=== PATIENT | male | born 1955 | race Caucasian/White ===

== ENCOUNTER 2020-04-13 01:25 | Inpatient (IN) | payer MEDICARE ==
[~2020-04-13] VITALS: Ht 182.9 cm; Wt 71.2 kg
--- NOTE | ~2020-04-13 | HEMODYNAMI ---
PATIENT:KORIN DE LA VEGA MEDICAL RECORD: [id number] : 51 LOCATION[facility] [id number] ADMISSION DATE: 04/13/20 Generatedon:04/13/202015:11 Patient name: KORIN DE LA VEGA Patient #: [id number] SSN: : 1955 Date of study: 04/13/2020 Page: Of Hemodynamic Procedure Report Patient Data Patient Demographics Procedure consent was obtained First Name: KOIRN Gender: Male Last Name: CEFERINO : 1955 Middle Initial: W Age: 64 year(s) Patient #: [id number] Race: Unknown Additional ID: [id number] Contact details [address]: [address] [place] [address] State: [place] City: [place] Zip code: [address] Past Medical History Allergies: No known allergies Admission Admission Data Admission Date: 04/13/2020 Admission Time: 2:11 Room #: D.2122 Lab Results Lab Result Date: 04/13/2020 Lab Result Time: 0:00 Biochemistry Name Units Result Min Max BUN mg/dl 20 --(----)*- 7 18 Creatinine mg/dl 1.2 --(---*)-- 0.6 1.3 eGFR ml/min 64.42797 *-(----)-- 90 120 NONAFRICAN CBC Name Units Result Min Max Hematocrit % 40.9 -*(----)-- 42 54 Hemoglobin g/dl 13.2 -*(----)-- 13.5 17.5 Procedure Procedure Types Cath Procedure Diagnostic Procedure C [facility] w/Coronaries FFR/IVUS FFR Initial FFR Additional Sedation Charges Moderate Sedation up to 30 minutes PCI Procedure Hemochron ACT Test Procedure Description Procedure Date Procedure Date: 04/13/2020 Procedure Start Time: 14:36 Procedure End Time: 15:08 Procedure Staff Name Function Chintan Pereira MD Performing Physician Petra Small RT Monitor Yaneth Ballard RT Scrub Joan Wilson RN Nurse Yaneth Ballard RT Blind Slat Stapling Machine Operator Tracy Garcia RT Monitor Procedure Data Cath Procedure Fluoroscopy Diagnostic fluoroscopy Total fluoroscopy Time: 6.2 time: 6.2 min min Diagnostic fluoroscopy Total fluoroscopy dose: dose: 1373 mGy 1373 mGy Contrast Material Contrast Material Type Amount (ml) Isovue 300 107 Entry Location Entry Primary Successful Side Size Upsize Upsize Entry Closure Succes sful Closure Location (Fr) 1 (Fr) 2 (Fr) Remarks Device Remarks Femoral Right 5 Fr 6 Fr Exoseal artery Short Estimated blood loss: 10 ml Diagnostic catheters Device Type Used For End Catheter Placement MULTIPACK JL 4.0 5Fr Procedure catheter MULTIPACK 3DRC 5Fr Procedure catheter MULTIPACK Pigtail 5 Fr Ventriculography catheter Procedure Medications Medication Administration Route Dosage 0.9% NaCl I.V. 100 ml/hr Oxygen etCO2 Nasal cannula 2 l/min Lidocaine 2% added to field 20 Heparin Flush Bag added to field 2 bags (1000units/500ml NS) Versed I.V. 2 mg Fentanyl I.V. 50 mcg Solumedrol I.V. 125 mg Heparin Bolus I.V. 5000 units Integrilin (Bolus I.V. 6.2 ml 2mg/ml) Integrilin (Bolus I.V. 3.8 ml 2mg/ml) Hemodynamics Rest HGB: 13.2 (g/dl) Heart Rate: 88 (bpm) Pressure Samples Time Site Value (mmHg) Purpose Heart Use Rate(bpm) 14:43 LV 100/6,8 Snapshot 83 14:43 LV 207/111,34 Snapshot 81 Snapshots Pre Cath Intra NCS Post Cath Vital Signs Time Heart Resp SPO2 etCO2 NIBP (mmHg) Rhythm Pain Sedation Rate (ipm) (%) (mmHg) Status Level (bpm) 14:29:41 96 19 98 30 115/81(91) A-Fib 0 (11) 10(A) , No pain 14:33:41 89 17 97 31.5 117/75(97) A-Fib 0 (11) 10(A) , No pain 14:37:36 78 17 99 30.7 113/79(91) A-Fib 0 (11) 10(A) , No pain 14:41:29 91 17 99 27.7 115/80(88) A-Fib 0 (11) 10(A) , No pain 14:45:25 82 13 100 12 122/78(100) A-Fib 0 (11) 10(A) , No pain 14:49:23 85 17 100 27.7 111/76(93) A-Fib 0 (11) 10(A) , No pain 14:53:18 89 16 100 27.7 115/76(91) A-Fib 0 (11) 10(A) , No pain 14:57:12 84 17 100 28.4 110/78(88) A-Fib 0 (11) 10(A) , No pain 15:01:10 82 18 100 23.9 115/73(96) A-Fib 0 (11) 10(A) , No pain 15:05:07 79 17 100 26.9 112/74(99) A-Fib 0 (11) 10(A) , No pain Medications Time Medication Route Dose Verified Delivered Reason Notes Effectiveness by by 14:25:06 0.9% NaCl I.V. 100 Chintan Joan used for ml/hr [facility] procedure MD ALBERT 14:25:12 Oxygen etCO2 2 Chintan Joan used for Nasal l/min [facility] procedure cannula MD ALBERT 14:25:16 Lidocaine 2% added 20ml Chintan Woodson for local to vial [facility] anesthetic field MD ESPITIA 14:25:20 Heparin Flush added 2 Chintan Jinory used for Bag to bags [facility] procedure (1000units/500ml field MD ESPITIA NS) 14:34:33 Versed I.V. 2 mg Chintan Roacha for sedation [facility] Ethan Wilson MD, RN 14:34:38 Fentanyl I.V. 50 Chintan Joan for sedation mcg [facility] Ethan Wilson MD, RN 14:41:38 Solumedrol I.V. 125 Chintan Joan Per physician mg St Ethan Wilson MD, RN 14:47:27 Heparin Bolus I.V. 5000 Chintan Joan for verif ied units [place] Steve anticoagulation with Dr. MD ALBERT [place] 14:47:43 Integrilin I.V. 6.2 Chintan Woodson for (Bolus 2mg/ml) ml St Ethan Pereira antiplatelet MD ESPITIA therapy 14:47:56 Integrilin I.V. 3.8 Chintan Woodson for (Bolus 2mg/ml) ml [facility] Ethan Pereira antiplatelet MD ESPITIA therapy Procedure Log Time Note 14:03:03 Informed consent obtained and on chart 14:03:29 Procedure Status Urgent Heart Cath (IP). 14:03:30 Time tracking: Regular hours (M-F 7:00 - 5:00) 14:03:32 Plan of Care:Hemodynamics will remain stable., Cardiac rhythm will remain stable., Comfort level will be maintained., Respiratory function will remain adequate., Patient/ family verbilizes understanding of procedure., Procedure tolerated without complication., Recovers from procedure without complications.. 14:03:34 Yaneth Ballard RT(R) sent for patient. Start room use. 14:04:21 H&P Date Dictated: 04/12/2020 ER History on chart.. 14:04:59 Patient allergic to No known allergies 14:05:40 Lab Result : BUN 20 mg/dl 14:05:40 Lab Result : Creatinine 1.2 mg/dl 14:05:40 Lab Result : eGFR NONAFRICAN 64.51942 ml/min 14:05:40 Lab Result : Hemoglobin 13.2 g/dl 14:05:40 Lab Result : Hematocrit 40.9 % 14:18:45 Patient received from Med II to CCL 2 Alert and oriented. Tansferred to table in Supine position. 14:18:47 Warm blankets applied, and milady hugger turned on for patient comfort. 14:18:48 Correct patient and procedure confirmed by team. 14:18:49 ECG and BP/O2 sat monitors applied to patient. 14:18:55 Pre-procedure instructions explained to patient. 14:18:59 Family in waiting room. 14:19:04 Is the patient allergic to Iodine/contrast media? No. 14:19:06 Was the patient premedicated? Yes 14:19:07 Is patient on blood thinner?Yes 14:19:12 ACC The patient was administered the following blood thiners within the last 24 hours: Eliquis 14:19:15 Patient diabetic? No. 14:19:20 Previous problem with sedation/anesthesia? No ? 14:19:22 Snore? Yes 14:19:26 Deviated septum? No 14:19:27 Sleep apnea? No 14:19:34 Airway obstruction? Unknown smoker 14:19:39 Dentures? No ? 14:19:42 Patient pain scale 0/10 ?. 14:19:50 IV patent on arrival in right forearm with 0.9% NaCl at KVO. 14:19:53 Lab results completed and on chart. 14:20:03 Stress Test: no; abnormal na 14:20:05 Alarms reviewed by R. N. 14:20:06 Sharps counted by scrub and verified by R.N. 14:20:07 Physician paged 14:20:11 Use device set Femoral Dx 14:20:13 ACIST Syringe (97703) opened to sterile field. 14:20:13 Bag Decanter (2002S) opened to sterile field. 14:20:14 Medline Cath Pack ([id number]) opened to sterile field. 14:21:01 ACIST Hand Control (75687) opened to sterile field. 14:21:01 ACIST Manifold (37666) opened to sterile field. 14:21:03 DIAGNOSTIC Multipack 5Fr catheter set ([id number]) opened to sterile field. 14:21:04 Tegaderm 4 x 4 (1626W) opened to sterile field. 14:21:06 SHEATH 5FR [place] (QGE882) opened to sterile field. 14:21:07 EMERALD Guide Wire (368-728) opened to sterile field. 14:25:06 0.9% NaCl 100 ml/hr I.V. was administered by Joan Wilson RN; used for procedure; Verbal order read back and verified. 14:25:12 Oxygen 2 l/min etCO2 Nasal cannula was administered by Joan Wilson RN; used for procedure; Verbal order read back and verified. 14:25:16 Lidocaine 2% 20ml vial added to field was administered by Chintan Pereira MD; for local anesthetic; Verbal order read back and verified. 14:25:20 Heparin Flush Bag (1000units/500ml NS) 2 bags added to field was administered by Chintan Pereira MD; used for procedure; Verbal order read back and verified. 14:28:47 Vital chart was started 14:28:48 Baseline sample Acquired. 14:28:53 Rhythm: sinus rhythm 14:28:54 Full Disclosure recording started 14:28:58 Physician arrived 14:28:59 --------ALL STOP TIME OUT------ 14:29:08 Final Timeout: patient, procedure, and site verified with staff and physician. All members of the team are in agreement. 14:29:11 Right groin site verified by team. 14:29:15 Fire Safety Assessment: A--An alcohol-based skin anteseptic being used preoperatively., C--Open oxygen or nitrous oxide is being used., D--An ESU, laser, or fiber-optic light is being used. 14:29:19 Physical assessment completed. ASA score P 2 - A patient with mild systemic disease as per Chintan Pereira MD. 14:29:37 2) 60-89 Mildly reduced kidney function, and other findings (as for stage 1) point to kidney disease. 14:29:55 Maximum allowable contrast dose (3.7 X eGFR X 0.75)178 ml. 14:30:01 Sedation plan: IV Moderate Sedation Medication:Versed, Fentanyl 14:34:33 Versed 2 mg I.V. was administered by Joan Wilson RN; for sedation; Verbal order read back and verified. 14:34:38 Fentanyl 50 mcg I.V. was administered by Joan Wilson RN; for sedation; Verbal order read back and verified. 14:36:35 Procedure started. 14:36:45 Local anesthetic to right femoral artery with Lidocaine 2% by Chintan Pereira MD.INITIAL ACCESS ONLY 14:37:41 A 5 Fr sheath was inserted into the Right Femoral artery 14:38:35 A MULTIPACK JL 4.0 5Fr catheter was advanced over the wire and used for Procedure. 14:39:01 LCA angiography performed. 14:40:52 Catheter removed. 14:41:22 A MULTIPACK 3DRC 5Fr catheter was advanced over the wire and used for Procedure. 14:41:38 Solumedrol 125 mg I.V. was administered by Joan Wilson RN; Per physician; Verbal order read back and verified. 14:42:34 RCA angiography performed. 14:43:02 Catheter removed. 14:43:16 A MULTIPACK Pigtail 5 Fr catheter was advanced over the wire and used for Ventriculography. 14:43:50 LV hemodynamics recorded. 14:43:54 LV gram done using MICHELE 14:43:56 Catheter removed. 14:45:47 GUIDE 6FR XBLAD 3.5 catheter ([id number]) opened to sterile field. 14:45:48 [place] Nimblerata Plus pressure wire (18518S) opened to sterile field. 14:45:49 INFLATOR Merit BasixCompak (WH1003) opened to sterile field. 14:45:50 SHEATH 6FR [place] (ZFG765) opened to sterile field. 14:46:28 Proceeding to intervention. 14:46:36 Sheath upsized to a 6 Fr Short. 14:46:48 6 Fr XBLAD3.5 guide catheter was inserted over the wire 14:47:00 FFR/IFR wire advanced. 14:47:27 Heparin Bolus 5000 units I.V. was administered by Joan Wilson RN; for anticoagulation; verified with Dr. Carcamo Verbal order read back and verified. 14:47:43 Integrilin (Bolus 2mg/ml) 6.2 ml I.V. was administered by Chintan Pereira MD; for antiplatelet therapy; Verbal order read back and verified. 14:47:56 Integrilin (Bolus 2mg/ml) 3.8 ml I.V. was administered by Chintan Pereira MD; for antiplatelet therapy; Verbal order read back and verified. 14:52:52 Wire advanced across lesion. 14:56:36 mLAD lesion measured at .95 with IFR 15:00:04 mCirc lesion measured at 1.02 with IFR 15:03:38 OM1 lesion measured at 1.02 with IFR 15:04:25 Sheath removed intact; hemostasis achieved with Exoseal to the Right Femoral artery. 15:04:28 Procedure ended.(Physican Out) 15:05:13 Fluoroscopy time 06.20 minutes. 15:05:17 Fluoroscopy dose: 1373 mGy 15:05:17 Flurop Dose total: 1373 15:05:26 Dose Area Product 60920 mGy/cm. 15:05:31 Contrast amount:Isovue 300 107ml. 15:05:34 Maximum allowable dose exceeded? No. 15:05:35 Sharps counted by scrub and verified by R.N. 15:05:50 Insertion/operative site no bleeding no hematoma. 15:05:54 Post-op/insertion site Right Femoral artery dressed using a 4 x 4 and Tegaderm. 15:05:57 Post Procedure Pulses reassessed and unchanged 15:06:03 Post-procedure physical assessment completed. ASA score P 3 - A patient with severe systemic disease as per Chintan Pereira MD. 15:06:07 Post procedure rhythm: unchanged. 15:06:12 Estimated blood loss: 10 ml 15:06:21 Post procedure instruction explained to patient.Patient verbalizes understanding. 15:07:08 Procedure type changed to Cath procedure, Diagnostic procedure, [facility], [facility] w/Coronaries, FFR/IVUS, FFR Initial, FFR Additional, Sedation Charges, Moderate Sedation up to 30 minutes, PCI procedure, Hemochron ACT Test 15:07:11 Procedure and supply charges have been captured, reviewed, submitted and are correct. 15:07:44 Vital chart was stopped 15:07:46 [facility] Findings: mild to moderate CAD (<70%) 15:07:48 See physician's report for complete and final results. 15:07:50 Report given to Med II. 15:08:02 Patient transfered to Med II with Stretcher. 15:08:04 Procedure ended. 15:08:04 Full Disclosure recording stopped 15:08:11 End room use (Document Last) 15:09:21 ACT drawn and resulted at 217 seconds. (normal therapeutic range 180-240 seconds). 15:10:54 ACT drawn and resulted at ? seconds. (normal therapeutic range 180-240 seconds). Device Usage Item Name Manufacture Quantity Catalog Hospital Part Current Minima l Lot# / Number Charge Number Stock Stock Serial# Code ACIST Acist 1 08385 345272 288560 993237 20 Syringe Medical (25627) Systems Inc Bag Microtek 1 2001S 103119 01687 222389 5 Decanter Medical Inc. () Medline Medline 1 [id number] 244506 35767 571585 5 Cath Pack ([id number]) ACIST Hand Acist 1 61904 420755 369245 923455 5 Control Medical (03328) Systems Inc ACIST Acist 1 88869 567367 958150 986403 5 Manifold Medical (37455) Systems Inc DIAGNOSTIC Cardinal 1 [id number] 493773 75116 103301 30 Multipack Health 5Fr catheter set (FJ6342) Tegaderm 4 3M 1 1626W 598042 951036 966072 5 x 4 (1626W) SHEATH 5FR Terumo 1 ULK083 382060 365391 085664 5 [place] (ILB495) EMERALD Cardinal 1 502-455 222600 267900 743393 5 Guide Wire Health (502-148) MULTIPACK Cardinal 1 267535 5 JL 4.0 5Fr Health catheter MULTIPACK Cardinal 1 917133 5 3DRC 5Fr Health catheter MULTIPACK Cardinal 1 836331 5 Pigtail 5 Health Fr catheter GUIDE 6FR Cardinal 1 [id number] 517621 534634 025419 10 XBLAD 3.5 Health catheter ([id number]) [place] 1 81736W 903820 [id number] 413587 5 Verrata Plus pressure wire (87172R) INFLATOR Merit 1 JE1898 045571 622179 535809 15 [facility] Medical BasixCompak (ZR3155) SHEATH 6FR Terumo 1 NLO036 276554 728058 728460 40 [place] (ZMV063) Signature Audit [place] Stage Time Signature Unsigned Intra-Procedure 04/13/2020 Tracy Garcia 3:10:27 PM RT(R) Intra-Procedure 04/13/2020 Joan Wilson 3:10:51 PM RN Intra-Procedure 04/13/2020 Chintan Browne 3:11:11 PM Ethan ESPITIA Signatures Performing Physician : Signature : Chintan Pereira MD Date : Time : Monitor : Petra Signature : Staci RT Date : Time : Nurse : Joan Wilson RN Signature : Date : Time : Monitor : Tracy Garcia Signature : RT Date : Time : [facility] [address] [place] [address]
--- NOTE | ~2020-04-13 | HEMODYNAMI ---
PATIENT:KORIN DE LA VEGA MEDICAL RECORD: [id number] : 51 LOCATION:[address] [id number] ADMISSION DATE: 04/13/20 Generatedon:04/14/202010:51 Patient name: KORIN DE LA VEGA Patient #: [id number] SSN: : 1955 Date of study: 04/14/2020 Page: Of Hemodynamic Procedure Report Patient Data Patient Demographics Procedure consent was obtained First Name: KORIN Gender: Male Last Name: CEFERINO : 1955 [facility] Initial: W Age: 64 year(s) Patient #: [id number] Race: Unknown Additional ID: [id number] Contact details Address: [address] [place] [address] State: [place] City: [place] Zip code: [address] Past Medical History Allergies: No known allergies Admission Admission Data Admission Date: 04/13/2020 Admission Time: 2:11 Room #: 2122 Lab Results Lab Result Date: 04/13/2020 Lab Result Time: 0:00 Biochemistry Name Units Result Min Max BUN mg/dl 20 --(----)*- 7 18 Creatinine mg/dl 1.2 --(---*)-- 0.6 1.3 eGFR ml/min 64.03657 *-(----)-- 90 120 NONAFRICAN CBC Name Units Result Min Max Hematocrit % 40.9 -*(----)-- 42 54 Hemoglobin g/dl 13.2 -*(----)-- 13.5 17.5 Procedure Procedure Types Cath Procedure Diagnostic Procedure Cardioversion External MEGA Procedure Description Procedure Date Procedure Date: 04/14/2020 Procedure Start Time: 10:34 Procedure End Time: 10:50 Procedure Staff Name Function Chintan Pereira MD Performing Physician Yaneth Ballard RT Monitor Erica Eisenberg RN Nurse Josette Adams Cutter Hand Rubén Durham CRNA Additional personnel Procedure Data Cath Procedure Fluoroscopy Diagnostic fluoroscopy Total fluoroscopy Time: 0 time: 0 min min Diagnostic fluoroscopy Total fluoroscopy dose: 0 dose: 0 mGy mGy Estimated blood loss: 0 ml Procedure Complications No complications Procedure Medications Medication Administration Route Dosage 0.9% NaCl I.V. 100 ml/hr Hurricaine [place]bourn P.O. 1 Sprays Oxygen NC 3 l/min Refer to Anesthesia Notes for Sedation Medications Hemodynamics Rest Heart Rate: 96 (bpm) Snapshots Pre Cath Intra NCS Post Cath Vital Signs Time Heart Resp SPO2 etCO2 NIBP (mmHg) Rhythm Pain Sedation Rate (ipm) (%) (mmHg) Status Level (bpm) 10:34:04 96 19 24 Measuring NSR (Missing) 10(A) 10:35:28 93 11 100 0 Time NSR (Missing) 10(A) Exceeded 10:40:06 73 20 94 0 Time NSR (Missing) 10(A) Exceeded 10:40:45 71 16 88 34.5 144/84(116) NSR (Missing) 10(A) 10:43:11 70 20 98 27.8 129/75(103) NSR (Missing) 10(A) 10:46:52 68 20 100 26.2 119/73(93) NSR (Missing) 10(A) Medications Time Medication Route Dose Verified Delivered Reason Notes Effectiv eness by by 10:32:32 0.9% NaCl I.V. 100 Chintan Maldonado used for ml/hr [place] Faina procedure RN 10:32:59 Hurricaine P[address] Chintan Woodson for local [place] Sprays [facility] anesthetic MD ESPITIA 10:33:08 Oxygen NC 3 Chintan Woodson for low 02 l/min [facility] John satjuana ESPITIA MD 10:33:20 Refer to Chintan Woodson for Anesthesia [facility] sedation Notes for MD ESPITIA Sedation Medications Procedure Log Time Note 10:03:11 Informed consent obtained and on chart 10:03:42 Procedure Status Cardioversion, MEGA. 10:03:43 Time tracking: Regular hours (M-F 7:00 - 5:00) 10:03:46 Plan of Care:Hemodynamics will remain stable., Cardiac rhythm will remain stable., Comfort level will be maintained., Respiratory function will remain adequate., Patient/ family verbilizes understanding of procedure., Procedure tolerated without complication., Recovers from procedure without complications.. 10:03:51 H&P Date Dictated: 04/13/2020 ER History on chart.. 10:04:24 Yaneth Ballard RT(R) sent for patient. Start room use. 10:28:00 Patient arrived from Pre/Post Procedure Room to CCL 3. Patient remains on bed/stretcher for procedure. 10:28:07 Warm blankets applied, and milady hugger turned on for patient comfort. 10:28:07 Correct patient and procedure confirmed by team. 10:28:09 ECG and BP/O2 sat monitors applied to patient. 10:28:10 Pre-procedure instructions explained to patient. 10:28:10 Pre-op teaching completed and patient verbalized understanding. 10:28:11 Family in patients room. 10:28:14 Patient NPO since Midnight. 10:29:31 Rubén Durham CRNA present and monitoring patient for TIVA. 10:31:36 Patient allergic to No known allergies 10:31:37 Is patient on blood thinner?Yes 10:31:40 ACC The patient was administered the following blood thiners within the last 24 hours: Eliquis 10:31:42 Patient diabetic? No. 10:31:44 Snore? Yes 10:31:45 Previous problem with sedation/anesthesia? No ? 10:31:47 Sleep apnea? No 10:31:48 Deviated septum? No 10:31:49 Opens mouth fully? Yes 10:31:50 Sticks out tongue? Yes 10:32:12 Airway obstruction? No PT IS SMOKER 10:32:15 Dentures? No ? 10:32:15 Vital chart was started 10:32:32 0.9% NaCl 100 ml/hr I.V. was administered by Erica Eisenberg RN; used for procedure; Verbal order read back and verified. 10:32:34 IV patent on arrival in right antecubital with 0.9% NaCl at [facility]. 10:32:38 Lab results completed and on chart. 10:32:44 Alarms reviewed by RMichael Willams. 10:32:53 Quick Combo opened to sterile field. 10:32:59 Hurricaine [place]n 1 Sprays P.O. was administered by Chintan Pereira MD; for local anesthetic; Verbal order read back and verified. 10:33:06 --------ALL STOP TIME OUT------ 10:33:08 Oxygen 3 l/min NC was administered by Chintan Pereira MD; for low 02 sats; Verbal order read back and verified. 10:33:08 Final Timeout: patient, procedure, and site verified with staff and physician. All members of the team are in agreement. 10:33:15 Fire Safety Assessment: C--Open oxygen or nitrous oxide is being used. 10:33:18 Physical assessment completed. ASA score P 3 - A patient with severe systemic disease as per Chintan Pereira MD. 10:33:20 Refer to Anesthesia Notes for Sedation Medications was administered by Chintan Pereira MD; for sedation; Verbal order read back and verified. 10:33:22 Sedation plan: TIVA Medication:Propofol 10:33:44 Baseline sample Acquired. 10:33:52 Rhythm: atrial fibrillation 10:33:54 Full Disclosure recording started 10:34:05 Procedure started. 10:34:16 MEGA 10:34:17 Josette Adams Camera Mechanic present for MEGA. 10:34:25 MEGA started. 10:38:10 MEGA completed. 10:38:18 ------Cardioversion------ 10:38:20 Quick combo pads placed on patients chest and back. 10:38:22 Defibrillator synced and charged to 200 Joules. 10:38:31 Shock delivered. 10:38:47 Patient cardioverted to sinus rhythm . 10:39:09 Procedure ended.(Physican Out) 10:40:12 Fluoroscopy time 00.00 minutes. 10:40:14 Fluoroscopy dose: 0 mGy 10:40:14 Flurop Dose total: 0 10:40:16 Dose Area Product 0 mGy/cm. 10:41:32 Post-procedure physical assessment completed. ASA score P 3 - A patient with severe systemic disease as per Chintan Pereira MD. 10:41:35 Post procedure rhythm: sinus rhythm 10:41:38 Estimated blood loss: 0 ml 10:41:39 Post procedure instruction explained to patient.Patient verbalizes understanding. 10:41:39 Patient needs reinforcement of post procedure teaching. 10:46:18 Procedure and supply charges have been captured, reviewed, submitted and are correct. 10:46:20 Procedure Complication : No complications 10:46:24 MEGA Findings: other (see MD operative note) 10:46:26 Operative report dictated upon procedure completion. 10:46:26 See physician's report for complete and final results. 10:47:02 PATIENT GOING TO IR FOR BIOPSY. THEN WILL GO TO ROOM ON THE FLOOR 10:47:08 Patient transfered to Other with Bed. 10:50:25 Vital chart was stopped 10:50:27 Procedure ended. 10:50:27 Full Disclosure recording stopped 10:50:30 End room use (Document Last) 10:50:42 End room use (Document Last) 10:51:16 End room use (Document Last) Device Usage Item Manufacture Quantity Catalog Hospital Part Current Minimal Lot# / Name Number Charge Number Stock Stock Seri al# Code Hop Skip Connect 1 [id number] Combo Signature Audit [place] Stage Time Signature Unsigned Intra-Procedure 04/14/2020 Yaneth Ballard 10:50:42 AM RT(R) Intra-Procedure 04/14/2020 Erica 10:51:16 AM Faina ALBERT Intra-Procedure 04/14/2020 Chintan Browne 10:51:46 AM Ethan ESPITIA [facility] [address] [place] [address]
[2020-04-13] MEDS ORDERED: CARDIZEM30 MG (03:16)
[2020-04-13] MEDS ORDERED: ELIQUIS5 MG (03:17)
[2020-04-13] MEDS ORDERED: PACERONE200 MG (03:18)
[2020-04-13] MEDS ORDERED: VITAMIN D5000 UNI1 (03:19)
[2020-04-13 03:27] LABS: BASOPHILS 0.1 % (0-2); EOSINOPHILS 0 % (0-7); HEMATOCRIT 40.9 % (42.0-54.0); HEMOGLOBIN 13.2 g/dL (13.5-17.5); IMMATURE GRANULOCYTES 0.3 % (0-5); LYMPHOCYTES 4.4 % (15-50); MCH 28.4 pg (26.0-34.0); MCHC 32.3 g/dL (31.0-37.0); MCV 88.1 fL (80.0-100.0); MEAN PLATELET VOLUME 8.9 fL (7.4-10.4); MONOCYTES 2.8 % (2-11); NEUTROPHILS 92.4 % (40-80); PLATELET COUNT 352 10x3/uL (130-400); RBC 4.64 10x6/uL (4.20-6.10); RDW 16.8 % (11.5-14.5); WBC 11.7 10x3/uL (4.8-10.8)
[2020-04-13 03:41] LABS: APTT 44.6 SECONDS (22.8-39.4); INR 1.32 (0.85-1.17); PROTIME 16.3 SECONDS (11.6-15.0)
[2020-04-13 03:49] LABS: ALBUMIN 2.6 g/dL (3.4-5.0); ALKALINE PHOSPHATASE 69 U/L (30-120); ALT (SGPT) 18 U/L (10-68); BILIRUBIN - TOTAL 0.65 mg/dL (0.2-1.3); CALC OSMOLALITY 267 mosm/kg (275-300); CALCIUM 9.7 mg/dL (8.5-10.1); CARBON DIOXIDE 22.2 mmol/L (21.0-32.0); CHLORIDE - SERUM 97 mmol/L (98-107); CKMB 0.3 U/L (0.0-3.6); CREATINE KINASE 23 UL (21-232); CREATININE - SERUM 1.2 mg/dL (0.6-1.3); GLUCOSE 142 mg/dL (74-106); MAGNESIUM - SERUM 1.9 mg/dL (1.8-2.4); POTASSIUM - SERUM 4.6 mmol/L (3.5-5.1); PRO BNP 2621 pg/mL (0-125); PROTEIN - SERUM 8.6 g/dL (6.4-8.2); SODIUM 131 mmol/L (136-145); TROPONIN-I < 0.017 ng/mL (0.000-0.060); UREA NITROGEN 20 mg/dL (7-18); eGFR NON AFRICAN AMERICAN 64 mL/min (90-120)
[2020-04-13 04:00] VITALS: BP 122/84
--- NOTE | 2020-04-13 04:10 | NUR ---
PT A&O. UP AD NAEEM. C/O OF PAIN WHILE DEEP BREATHING, OTHERWISE NO COMPLAINTS. SMOKES A PACK AND A HALF OF CIGARETTES A DAY AND DRINKS ABOUT 7 BEERS A DAY. CURRENT FRACTURE IN LOWER BACK FOLLOWED BY PHYSICIAN. PT CURRENTLY DENIES PAIN OR NEEDS.
--- NOTE | 2020-04-13 07:00 | NUR ---
RECEIVED REPORT. ASSUMED CARE OF PATIENT. CALL LIGHT WITHIN REACH. PATIENT SITTING UP IN BED WITH EYES OPEN. SPOUSE AT BEDSIDE. RESP EVEN AND UNLABORED. PATIENT COMPLAINS OF CHEST PAIN ONLY ON INSPIRATION. BEDSIDE SHIFT REPORT COMPLETE. WHITE BOARD UPDATED. PATIENT DENIES NEEDS. NPO STATUS MADE KNOWN TO PATIENT. NO DISTRESS.
[2020-04-13 08:22] LABS: BILIRUBIN NEGATIVE (NEGATIVE); GLUCOSE NEGATIVE (NEGATIVE); KETONE NEGATIVE (NEGATIVE); NITRITE NEGATIVE (NEGATIVE); UROBILINOGEN NORMAL (NORMAL)
[2020-04-13 09:12] LABS: LDL-HDL RATIO 0.8 ratio (1.5-3.5)
[2020-04-13 09:28] VITALS: BP 130/69
[2020-04-13 09:52] LABS: CKMB 0.4 U/L (0.0-3.6); CREATINE KINASE 27 UL (21-232); TROPONIN-I < 0.017 ng/mL (0.000-0.060)
--- NOTE | 2020-04-13 10:52 | NUR ---
PATIENT IS ON ELIQUIS BID AND DID NOT WANT THE SCDS.
[2020-04-13 12:09] VITALS: BP 132/81
[2020-04-13 12:42] VITALS: BMI 21.3
--- NOTE | 2020-04-13 13:22 | NUR ---
PREOP MEDS ADMINISTERED AT THIS TIME.
--- NOTE | 2020-04-13 14:00 | NUR ---
PATIENT LEFT UNIT VIA BED FOR YARD COUPLER. NO DISTRESS.
--- NOTE | 2020-04-13 15:27 | NUR ---
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 DRESSING TO RIGHT GROIN CLEAN DRY AND INTACT. PERIPHERAL PULSES PATENT. PATIENT RESTING WITH EYES OPEN. CALL LIGHT WITHIN REACH.
[2020-04-13 15:35] VITALS: BP 122/75
[2020-04-13 16:51] LABS: CKMB 0.4 U/L (0.0-3.6); CREATINE KINASE 22 UL (21-232)
[2020-04-13 16:54] LABS: TROPONIN-I < 0.017 ng/mL (0.000-0.060)
--- NOTE | 2020-04-13 20:32 | NUR ---
GONE TO CT VIA WC.
[2020-04-13 22:26] VITALS: BP 125/67
[2020-04-14] VITALS (9 sets, daily range): BP systolic 114–150; BP diastolic 70–95
[2020-04-14 06:45] LABS: BASOPHILS 0 % (0-2); EOSINOPHILS 0 % (0-7); HEMATOCRIT 40.5 % (42.0-54.0); HEMOGLOBIN 12.9 g/dL (13.5-17.5); IMMATURE GRANULOCYTES 0.2 % (0-5); LYMPHOCYTES 5.9 % (15-50); MCH 28.4 pg (26.0-34.0); MCHC 31.9 g/dL (31.0-37.0); MCV 89.2 fL (80.0-100.0); MEAN PLATELET VOLUME 8.9 fL (7.4-10.4); MONOCYTES 5.2 % (2-11); NEUTROPHILS 88.7 % (40-80); RBC 4.54 10x6/uL (4.20-6.10); RDW 17.3 % (11.5-14.5)
[2020-04-14 06:48] LABS: PLATELET COUNT 198 10x3/uL (130-400)
[2020-04-14 08:14] LABS: ALBUMIN 2.3 g/dL (3.4-5.0); ALKALINE PHOSPHATASE 56 U/L (30-120); ALT (SGPT) 18 U/L (10-68); BILIRUBIN - TOTAL 0.28 mg/dL (0.2-1.3); CALC OSMOLALITY 272 mosm/kg (275-300); CARBON DIOXIDE 24.2 mmol/L (21.0-32.0); CHLORIDE - SERUM 99 mmol/L (98-107); GLUCOSE 124 mg/dL (74-106); LDH 121 U/L (85-227); MAGNESIUM - SERUM 2.3 mg/dL (1.8-2.4); POTASSIUM - SERUM 4.9 mmol/L (3.5-5.1); PROTEIN - SERUM 7.1 g/dL (6.4-8.2); SODIUM 133 mmol/L (136-145); eGFR NON AFRICAN AMERICAN 79 mL/min (90-120)
[2020-04-14 08:16] LABS: UREA NITROGEN 29 mg/dL (7-18)
[2020-04-14 08:31] LABS: INR 1.12 (0.85-1.17); PROTIME 14.3 SECONDS (11.6-15.0)
[2020-04-14 08:32] LABS: APTT 45.9 SECONDS (22.8-39.4)
--- NOTE | 2020-04-14 12:23 | NUR ---
RECEIVED PT FROM IR. PT IS AAO AND LYING SEMI FOWLERS. CALL LIGHT W/I REACH. AT BEDSIDE. VSS AND WNL. NO S/S OF DISTRESS NOTED. WILL CTM.
[2020-04-14 13:12] LABS: PROTEIN - BODY FLUID 4.2 G/DL
[2020-04-14 14:20] LABS: MACROPHAGES BF 6 %; NEUT - BF 49 %
--- NOTE | 2020-04-14 20:18 | NUR ---
REMOVED DRESSING FROM HEART CATH. SKIN INTACT AND NO HEMORRHAGING AT THIS TIME. NO PAIN OR REDNESS AT SITE.
--- NOTE | 2020-04-14 22:05 | NUR ---
REPORT RECEIVED AT SHIFT CHANGE. PATIENT ALERT AND ORIENTED WITH SPOUSE AT BEDSIDE. DRESSING FROM RIGHT UPPER THIGH REMOVED WITH NO EVIDENCE OF HEMORRHAGING, REDNESS, OR DRAINAGE. NO EVIDENCE OF HEMORRHAGING AT INCISION SITE ON UPPER BACK FROM THORACENTESIS. PATIENT REPORTS NO CONCERNS AT THIS TIME.
[2020-04-15] VITALS: BP 146/82
[2020-04-15 04:00] VITALS: BP 117/75
[2020-04-15 06:00] LABS: BASOPHILS 0 % (0-2); EOSINOPHILS 0 % (0-7); HEMATOCRIT 33.8 % (42.0-54.0); HEMOGLOBIN 10.8 g/dL (13.5-17.5); IMMATURE GRANULOCYTES 0.1 % (0-5); LYMPHOCYTES 8.1 % (15-50); MCH 28.1 pg (26.0-34.0); MCV 87.8 fL (80.0-100.0); MEAN PLATELET VOLUME 9.1 fL (7.4-10.4); MONOCYTES 7.2 % (2-11); NEUTROPHILS 84.6 % (40-80); RBC 3.85 10x6/uL (4.20-6.10); RDW 17.1 % (11.5-14.5); WBC 7.9 10x3/uL (4.8-10.8)
[2020-04-15 06:22] LABS: PLATELET COUNT 304 10x3/uL (130-400)
[2020-04-15 06:37] LABS: ALBUMIN 2.2 g/dL (3.4-5.0); ANION GAP 13.3 mmol/L (8-16); BILIRUBIN - TOTAL 0.24 mg/dL (0.2-1.3); CALCIUM 8.4 mg/dL (8.5-10.1); CARBON DIOXIDE 22.2 mmol/L (21.0-32.0); CREATININE - SERUM 1.1 mg/dL (0.6-1.3); MAGNESIUM - SERUM 2.1 mg/dL (1.8-2.4); POTASSIUM - SERUM 4.5 mmol/L (3.5-5.1); PROTEIN - SERUM 6.6 g/dL (6.4-8.2)
--- NOTE | 2020-04-15 07:32 | EC ---
PATIENT:KORIN DE LA VEGA DATE OF SERVICE: 04/13/20 SEX: M MEDICAL RECORD: [id number] DATE OF : [birth year] LOCATION:D.M2 D.212 AGE OF PATIENT: 64 ADMISSION DATE: 04/13/20 REFERRING PHYSICIAN: INTERPRETING PHYSICIAN: JOSEPH GONZALEZ MD ECHOCARDIOGRAM REPORT ECHO CHARGES 4 ECHO COMPLETE Date: 04/14/20 CLINICAL DIAGNOSIS: DYSPNEA ECHOCARDIOGRAPHIC MEASUREMENTS (adult normal given) AC root (d.<3.7cm) 2.5 cm LV Septum d (<1.2 cm> 1.3 cm Valve Excursion 1.4 cm LV Septum (systole) 1.4 cm Left Atria (s.<4.0cm> 3.7 cm LVPW d(<1.2cm) 1.1 cm RV (d.<2.3cm) 3.0 cm LVPW (sytole) 1.2 cm LV diastole(<5.6CM) 4.2 cm MV E-F(>70mm/sec) cm LV systole 3.1 cm LVOT Diameter 1.8 cm MV exc.(>10mm) cm Est.ejection fraction (50-75%) % DOPPLER: LVIT cm/sec A 18 cm/sec E 115 cm/sec LA cm/sec RVSP 31.4 mmHg LVOT 79 cm/sec AOP1/2T m/s Asc. Ao 121 cm/sec RVOT 52 cm/sec RA cm/sec PA cm/sec AV Gradient Peak 5.9 mmHg AV Mean 3.3 mmHg AV Area 1.6 cm MV Gradient Peak 5.0 mmHg MV Mean 2.3 mmHg MV Area cm COMMENTS: PACS Casting And Pasting Supervisor: Arthur MILNER Tank Inspector: 3 Dr. Carcamo TAPE# PACS Pericardial Effusion N DATE OF SERVICE: FINDINGS: 1. Left ventricle is normal size and shape. Ejection fraction around 45% to 50%. 2. Left atrium is normal. 3. Aortic valve is normal. 4. Mitral valve is normal. 5. Tricuspid valve has trace tricuspid regurgitation. RVSP is 31 mmHg. 6. Right ventricle is mildly enlarged with normal function. ECHOCARDIOGRAM REPORT [id number] KORIN DE LA VEGA 7. Right atrium is normal. 8. Pulmonic valve is normal shape, structure, and function, not well visualized. 9. Pericardium shows no effusion. TRANSINT:[id number] Voice Confirmation ID: [id number] DOCUMENT ID: [id number] JOSEPH GONZALEZ MD at 0732 CC: [id number] DICTATION DATE: 04/14/20 1252 MOBILITY SPECIALIST: 04/14/20 2135 ADM IN [place] [address] [place] [address]
--- NOTE | 2020-04-15 08:32 | NUR ---
POKE WITH MIRIAN PHARMACIST AND SHE STATES ZOSYN AND VANCOMYCIN ARE COMPATIBLE Y-SITED WITH BANANA BAG BUT THE ZOSYN AND VANCOMYCIN AREN'T COMPATIBLE TOGETHER. SHE STATES IF DR. TABARES WILL CHANGE ZOYN TO RUN OVER 30 MIN AND NOT IN 4 HOURS THE TIMES WILL WORK OUT AND MEDS WON'T BE LATE. I VERBALIZED UNDERSTANDING. WILL SPEAK WITH DR. TABARES ABOUT CHANGING ZOSYN WHEN HE ROUNDS.
--- NOTE | 2020-04-15 09:06 | NUR ---
CINDY STILL RUNNING. PT WANTS TO SHOWER BEFORE START VANCOMYCIN AND BANANA BAG. WILL WAIT TILL AFTER POT SHOWERS TO HOOK THOSE MEDS UP.
[2020-04-15 09:57] VITALS: BP 162/78
--- NOTE | 2020-04-15 10:15 | NUR ---
ZOSYN FINISHED INFUSING. PT UNHOOKED FROM IV AND IV COVERED. UNHOOKED PT FROM TELEMETRY. PT TO TAKE SHOWER.
--- NOTE | 2020-04-15 12:40 | NUR ---
I have reviewed this patient and I concur with the Shift Assessment completed by the Licensed Practical Nurse today this shift.
--- NOTE | 2020-04-15 13:43 | NUR ---
Nutrition Follow-up: Eating well. Noted plans for possible d/c tomorrow pending cultures. Diet: Regular Wt: 157# (04/13) Labs noted: Na 132, Ca 8.4, Alb 2.2 Meds reviewed -Encourage PO intake and honor food preferences. -Monitor wt; noted daily wts ordered. -RD following.
--- NOTE | 2020-04-15 14:52 | CN ---
PATIENT NAME:KORIN DE LA VEGA MEDICAL RECORD: [id number] : 51 LOCATION:. D.2122 ADMIT DATE: 04/13/20 ACCOUNT: [id number] CONSULTING PHYSICIAN: RIA BERG MD REFERRING PHYSICIAN: KRUPA CHAN MD DATE OF CONSULTATION: 04/13/2020 HISTORY OF PRESENT ILLNESS: A 64-year-old gentleman with history of hypertension, transferred from [place] with onset of atrial fibrillation with RVR, angina, dyspnea, also found to have a lung mass. We are asked to see him concerning his cardiovascular status. Constitutional symptoms began about a month with weight loss, palpitations, fluttering. SOCIAL HISTORY: Smokes about a pack and a half a day, drinks better than 6 beers. Easily able to take care of all his ADLs. MEDICATIONS: On transfer include Eliquis 5 mg p.o. b.i.d., amiodarone 200 p.o. b.i.d., diltiazem 120 b.i.d. ALLERGIES: Unknown. REVIEW OF SYSTEMS: The patient reports easy bruising but reports no swollen glands. The patient reports no fever, no night sweats, no significant weight gain, no significant weight loss. No significant exercise tolerance. The patient reports no dry eyes, no irritation, no vision change. Patient reports no difficulty hearing and no ear pain. Patient reports no frequent nose bleeds or nose and sinus problems. Patient reports on arm pain on exertion. No shortness of breath while lying down. No history of heart murmur. Patient reports no cough, no wheezing or coughing up blood. Patient reports no abdominal pain, no vomiting. Normal appetite. No diarrhea and not vomiting blood. No nausea and no constipation. Patient reports no incontinence. No difficulty urinating. No hematuria. No increased frequency. Patient reports no muscle aches. No weakness, no arthralgias, no back pain. No swelling of the extremities. Patient reports no abnormal mole, no jaundice, no rashes. Reports no loss of consciousness. No weakness and no numbness. No seizures, dizziness, or headaches. The patient reports no depression, no sleep disturbance, feeling safe in a relationship and no alcohol abuse. Patient reports on fatigue. Reports no runny nose or sinus pressure. No itching, no hives, and no frequent sneezing. PHYSICAL EXAMINATION: GENERAL: Pleasant gentleman in no acute distress, appears stated age. VITAL SIGNS: Blood pressure 122/84, pulse 94 and irregular. HEENT: Normocephalic, atraumatic. NECK: No bruits noted. HEART: Irregular, rates around 100, a II/ systolic ejection murmur. LUNGS: Prolonged expiratory phase, few expiratory wheezes. ABDOMEN: Soft, nontender. EXTREMITIES: Pulse 2+. No edema. IMPRESSION AND PLAN: New onset atrial fibrillation with angina. We will plan for angiography, MEGA cardioversion, probably will need a biopsy of the lung mass in the near future. Further recommendations based on the above. TRANSINT:[id number] Voice Confirmation ID: [id number] DOCUMENT ID: [id number] CONSULT REPORT [id number] KORIN DE LA VEGA GREGORY A MD at 1452 CC: [id number] DICTATION DATE: 04/13/20 0849 CARAMEL CANDY MAKER: 04/13/20 1022 ADM IN [facility] [address] [place] [address]
--- NOTE | 2020-04-15 14:53 | TEE ---
PATIENT:KORIN DE LA VEGA MEDICAL RECORD: [id number] LOCATION:D. D.212 AGE OF PATIENT: 64 ADMISSION DATE: 04/13/20 SEX: M REFERRING PHYSICIAN: INTERPRETING PHYSICIAN: RIA BERG MD TRANSESOPHAGEAL ECHOCARDIOGRAM Date: 04/14/20 MEGA CHARGE Y INDICATIONS: CARDIOVERSION PREMEDICATIONS: PATIENT'S RESPONSE PROCEDURE DOPPLER MEASUREMENTS: LVIT LA PA RA LVOT 79 RVOT 52 Asc. Ao 121 AV Gradient Peak 5.9 AV Mean 3.3 AV Area 1.6 MV Gradient Peak 5.0 MV Mean 2.3 MV Area INTERPRETATION: Doppler: 2-D: COLOR FLOW DOPPLER NORMAL SALINE STUDY: MISCELLANOUS: DIAGNOSIS: PLAN: Windows Security Analyst:3 Dr. Carcamo Career Services Manager: Arthur MILNER COMMENTS: PACS DATE OF SERVICE: 04/14/2020 TRANSESOPHAGEAL NOTE DESCRIPTION OF PROCEDURE: After general sedation via TIVA via anesthesia, transesophageal Omniplane probe was placed in the distal esophagus and proximal stomach without difficulty. FINDINGS: LVH is present. LV internal dimension is normal. Wall motion is TRANSESOPHAGEAL ECHOCARDIOGRAM REPORT [id number] REINALDO DE LA VEGA. EF is greater than or equal to 55%. Aortic valve is tricuspid with good valve excursion. No significant AI by color flow imaging. Left atrium appears normal dimensions. Left atrial appendage is well visualized with no evidence of thrombus. Good contractility via Doppler interrogation. Mitral valve appears normal. Trivial MR. Right-sided chambers appear normal. Trivial TR. At the end of procedure, the Omniplane probe was turned posteriorly and this shows minimal atherosclerotic debris in the descending aorta. TRANSINT:[id number] Voice Confirmation ID: [id number] DOCUMENT ID: [id number] at 1453 CC: [id number] DICTATION DATE: 04/14/20 1042 MOTION DESIGNER: 04/14/20 1110 ADM IN [place] [address] [place] [address]
--- NOTE | 2020-04-15 14:53 | OP ---
PATIENT NAME: KORIN DE LA VEGA MEDICAL RECORD: [id number] :51 LOCATION:D.M2 D.2121 ADMISSION DATE:04/13/20 SURGEON: RIA BERG MD DATE OF OPERATION: 04/13/2020 PROCEDURE: Left heart catheterization, selective coronary angiography, plus IFR to the LAD and IFR to the circumflex, right femoral artery approach. CATHETERS: A 5-Upper Sorbian sheath, 5/4 left and right Jeremy, 5/4 pig. The procedure was well tolerated. The patient returned to kenny. Sheath removed. ExoSeal device placed. FINDINGS: Left ventriculography in 30 degree MICHELE view normal wall motion and normal systolic function. CORONARY ANATOMY: LEFT MAIN: Left main is free of disease. LAD: Has a questionable stenosis in mid portion; however, this is insignificant via IFR wire. CIRCUMFLEX: Circumflex again has a more questionable flow obstructive stenosis; however, IFR the circumflex is again normal. RIGHT CORONARY ARTERY: Dominant artery, gives rise to PDA and no significant disease. IMPRESSION: Normal left ventricular function, no significant stenosis, confirmed via IFR wired to both the LAD and circ. TRANSINT:[id number] Voice Confirmation ID: [id number] DOCUMENT ID: [id number] RIA BERG MD at 1453 CC: [id number] DICTATION DATE: 04/13/20 1513 SECTION CREWS ACTIVITIES CLERK: 04/13/202111 ADM IN [facility] [address] [place] [address]
--- NOTE | 2020-04-15 14:53 | OP ---
PATIENT NAME: KORIN NGUYEN MEDICAL RECORD: [id number] :51 LOCATION:D.M2 D.2122 ADMISSION DATE:04/13/20 SURGEON: RIA BERG MD DATE OF OPERATION: 04/14/2020 PROCEDURE: Cardioversion. DESCRIPTION OF PROCEDURE: After general sedation via TIVA via anesthesia, a single synchronized shock was successful in restoring atrial fibrillation to normal sinus rhythm. IMPRESSION: Successful cardioversion on Korin Nguyen. During the procedure, the patient was monitored continuously with pulse oximetry and telemetry and noninvasive blood pressure monitoring. TRANSINT:[id number] Voice Confirmation ID: [id number] DOCUMENT ID: [id number] RIA BERG MD at 1453 CC: [id number] DICTATION DATE: 04/14/20 1043 FIELD CLINICAL ENGINEER: 04/14/20 1616 ADM IN [facility] [address] [place] [address]
[2020-04-15 15:06] VITALS: BP 142/76
[2020-04-15 18:09] LABS: ACID FAST SMEAR Negative (()); AFB SPECIMEN PROCESSING Concentration (())
[2020-04-15 18:09] LABS: ACID FAST SMEAR Negative (()); AFB SPECIMEN PROCESSING Concentration (())
[2020-04-15 20:00] VITALS: BP 139/71
[2020-04-16 04:00] VITALS: BP 129/63
[2020-04-16 06:53] LABS: BASOPHILS 0.2 % (0-2); EOSINOPHILS 0.5 % (0-7); HEMATOCRIT 35.3 % (42.0-54.0); IMMATURE GRANULOCYTES 0.2 % (0-5); LYMPHOCYTES 13.5 % (15-50); MCH 27.7 pg (26.0-34.0); MCHC 31.2 g/dL (31.0-37.0); MCV 88.9 fL (80.0-100.0); MEAN PLATELET VOLUME 8.5 fL (7.4-10.4); NEUTROPHILS 76.6 % (40-80); PLATELET COUNT 302 10x3/uL (130-400); RBC 3.97 10x6/uL (4.20-6.10); RDW 17.3 % (11.5-14.5)
[2020-04-16 07:31] LABS: ALBUMIN 2.1 g/dL (3.4-5.0); ANION GAP 9.9 mmol/L (8-16); BILIRUBIN - TOTAL 0.36 mg/dL (0.2-1.3); CALCIUM 8.2 mg/dL (8.5-10.1); CARBON DIOXIDE 26.1 mmol/L (21.0-32.0); CREATININE - SERUM 1.1 mg/dL (0.6-1.3); MAGNESIUM - SERUM 2.1 mg/dL (1.8-2.4); PROTEIN - SERUM 6.4 g/dL (6.4-8.2)
[2020-04-16 08:21] VITALS: BP 156/70
[2020-04-16 10:12] LABS: FUNGUS STAIN Final report (())
[2020-04-16 10:12] LABS: FUNGUS STAIN Final report (())
--- NOTE | 2020-04-16 10:48 | NUR ---
I have reviewed this patient and I concur with the Shift Assessment completed by the Licensed Practical Nurse today this shift.
[2020-04-16 11:41] VITALS: BP 155/79
[2020-04-16] MEDS ORDERED: ALBUTEROL SULF8.5 GM INH (13:56)
[2020-04-16] MEDS ORDERED: LEVAQUIN750 MG PO ×2 (13:56→14:22)
[2020-04-16] MEDS ORDERED: OMNICEF300 MG PO ×2 (13:56→14:22)
[2020-04-16] MEDS ORDERED: TESSALON PERLE100 MG PO (13:56)
[2020-04-16] MEDS ORDERED: MUCINEX DM ER1 EAC1 PO (13:56)
--- NOTE | 2020-04-16 14:10 | NUR ---
PAGE INTO DR TABARES FOR ANY FURTHER DC ORDERS. AWAITING CALL BACK.
[2020-04-16] MEDS ORDERED: XOPENEX 0.0.63 MG/3 UPD (14:22)
[2020-04-16] MEDS ORDERED: PULMICORT0.5 MG/21 INH (14:23)
--- NOTE | 2020-04-16 14:30 | NUR ---
DR TABARES STATES THAT HE IS GOING TO "COME BY AND SEE HIM PRIOR TO BEING DISCHARGED".
--- NOTE | 2020-04-16 14:56 | MORECARE ---
CASE MANAGEMENT DISCHARGE SUMMARY PATIENT: KORIN DE LA VEGA UNIT: [id number] ADM DATE: 04/13/20 AGE: 64 : [birth year] SEX: M ROOM/BED: D.[facility] AUTHOR: DEBBI ANGELO PHYSICIAN: REFERRING PHYSICIAN: KRUPA CHAN MD DATE OF SERVICE: 04/16/20 Discharge Plan Patient Name: KORIN DE LA VEGA Facility: [facility]:[place] : 1955 Planned Disposition: Anticipated Discharge Date: Discharge Date: Expected LOS: Initial Reviewer: [email or web address] Initial Review Date: 04/13/2020 Generated: 04/16/20 3:56 pm DCPIA - Discharge Planning Initial Assessment Updated by [id number]: Kimberli Mcfadden on 04/16/20 2:49 pm * Is the patient Alert and Oriented? Yes * How many steps to enter\exit or inside your home? 5/0 * PCP Vi * Pharmacy [facility] * Preadmission Environment Home with Family * ADLs Independent * Equipment Cane * List name and contact numbers for known caregivers / representatives who currently or will assist patient after discharge: SEYMOUR PANTOJA [phone] * Verbal permission to speak to the caregivers and representatives has been obtained from the patient. Yes * Community resources currently utilized None * Additional services required to return to the preadmission environment? No * Can the patient safely return to the preadmission environment? Yes * Has this patient been hospitalized within the prior 30 days at any hospital? No Coverage Notice Reviewer: [id number] Jerald Mcfadden Notice Issued Date-Time: 04/16/2020 14:00 Notice Type: IM Discharge Notice Notice Delivered To: Patient Relationship to Patient: Loan Review Manager Name: Delivery Method: HAND - Hand Delivered Joie Days: Prior Verbal Notification: Recipient Understood Notice: Yes Recipient Signature: Yes Med Rec Note Co-signed by Attending: Coverage Notice Comment: DC IMM DELIVERED Reviewer: [email or web address] Jerald Mcfadden Notice Issued Date-Time: 04/16/2020 14:00 Notice Type: Patient Choice Letter Notice Delivered To: Patient Relationship to Patient: Loan Review Manager Name: Delivery Method: HAND - Hand Delivered Joie Days: Prior Verbal Notification: Recipient Understood Notice: Yes Recipient Signature: Yes Med Rec Note Co-signed by Attending: Coverage Notice Comment: NEBS WITH [facility] PATIENT. ZORATIN FOR . Patient Name: KORIN DE LA VEGA Page [id number] at 1456 All edits/amendments must be made on the electronic document DICTATION DATE: 04/16/201455 OPERATOR VACUUM: YASIR 04/16/201455 RPT#: [id number] DC DATE: STATUS: ADM IN [facility] [address] [place] [address] END OF REPORT
--- NOTE | 2020-04-16 15:04 | MORECARE ---
CASE MANAGEMENT DISCHARGE SUMMARY PATIENT: KORIN DE LA VEGA UNIT: [id number] ADM DATE: 04/13/20 AGE: 64 : 53 SEX: M ROOM/BED: D.7268 AUTHOR: GI,DOC PHYSICIAN: REFERRING PHYSICIAN: KRUPA CHAN MD DATE OF SERVICE: 04/16/20 Discharge Plan Patient Name: KORIN DE LA VEGA Facility: [facility]:[place] : 1955 Planned Disposition: Anticipated Discharge Date: Discharge Date: Expected LOS: Initial Reviewer: [id number] Initial Review Date: 04/13/2020 Generated: 04/16/20 4:03 pm Comments DCP- Discharge Planning Updated by [email or web address]: Kimberli Mcfadden on 04/16/20 2:[address] Patient Name: KORIN DE LA VEGA Admission Status: ER Accout number: [id number] Admission Date: 04-13-2020 : 1955 Admission Diagnosis:CHEST PAIN, UNSPECIFIED Attending: GE CHAN Current LOS: 3 Anticipated DC Date: Planned Disposition: Primary Insurance: [employer] [facility] Discharge Planning Comments: CM met with patient to complete initial dc planning assessment. CM educated patient on the CM role and verbal consent given by patient to complete assessment. CM verified patient's address, phone number, and emergency contact phone numbers. Patient lives at home with his Seymour [phone]. At discharge patient plans to return home and feels this is a safe discharge. CM discussed availability of home health, rehab services, and medical equipment. Patient denied known discharge needs at this time. Declination signed for home health. CM stated patient can change his mind and home health can be provided by his PCP after discharge. Stated CM can assist his PCP in setting it up. Pt does not have a qualifying diagnosis for home nebs. CM provided pt with [facility] [phone] who can provide nebulizer machine for 30 dollars/. Nursing will call in medications per order. Transportation provider at discharge will be Seymour. CM will continue to follow and will assist as needed with dc plans/needs. DC IMM delivered, explained, signed by the patient, and placed in chart. Signed form also left with the patient. Supervisor Ride Assembly: Kimberli Mcfadden DCPIA - Discharge Planning Initial Assessment Updated by [id number]: Kimberli Mcfadden on 04/16/20 2:49 pm * Is the patient Alert and Oriented? Yes * How many steps to enter\exit or inside your home? 5/0 * PCP Vi * [facility] * Preadmission Environment Home with Family * ADLs Independent * Equipment Cane * List name and contact numbers for known caregivers / representatives who currently or will assist patient after discharge: SEYMOUR PANTOJA [phone] * Verbal permission to speak to the caregivers and representatives has been obtained from the patient. Yes * Community resources currently utilized None * Additional services required to return to the preadmission environment? No * Can the patient safely return to the preadmission environment? Yes * Has this patient been hospitalized within the prior 30 days at any hospital? No Coverage Notice Reviewer: [id number] Jerald Mcfadden Notice Issued Date-Time: 04/16/2020 14:00 Notice Type: IM Discharge Notice Notice Delivered To: Patient Relationship to Patient: Aeronautical Design Engineer Name: Delivery Method: HAND - Hand Delivered Joie Days: Prior Verbal Notification: Recipient Understood Notice: Yes Recipient Signature: Yes Med Rec Note Co-signed by Attending: Coverage Notice Comment: DC IMM DELIVERED Reviewer: [id number] Jerald Mcfadden Notice Issued Date-Time: 04/16/2020 14:00 Notice Type: Patient Choice Letter Notice Delivered To: Patient Relationship to Patient: Aeronautical Design Engineer Name: Delivery Method: HAND - Hand Delivered Joie Days: Prior Verbal Notification: Recipient Understood Notice: Yes Recipient Signature: Yes Med Rec Note Co-signed by Attending: Coverage Notice Comment: NEBS WITH [facility]. DECLINATIN FOR HH. Last DP export: 04/16/20 1:56 p Patient Name: KORIN DE LA VEGA Page [id number] at 1504 All edits/amendments must be made on the electronic document DICTATION DATE: 04/16/201502 DIRECT CARE SUPERVISOR: YASIR 04/16/201502 RPT#: [id number] DC DATE: STATUS: ADM IN [facility] [address] [place] [address] END OF REPORT
--- NOTE | 2020-04-16 15:11 | NUR ---
PT WANTING TELEMTRY DC'D. SO HE CAN GET DRESSED SINCE HE IS DC. DC'D TELEMTRY AND RETURNED TO OUTSIDE INSTALLATION MACHINIST.
--- NOTE | 2020-04-16 15:23 | NUR ---
DR. MONDRAGON STATES TO ME PT DC CANCELED. PATHOLOGY REPORTS SHOWS LUNG CANCER. DR. TABARES WANTS PT TO HAVE STAGING DONE HERE AND WORKUP. DR. TIAN WILL BE CONSULTED. I VERBALIZED UNDERSTANDING. DR. MESA WENT IN PT'S ROOM AND TOLD PT AND HIS WHO IS AT BEDSIDE.
--- NOTE | 2020-04-16 15:52 | MORECARE ---
CASE MANAGEMENT DISCHARGE SUMMARY PATIENT: KORIN DE LA VEGA UNIT: [id number] ADM DATE: 04/13/20 AGE: 64 : 51 SEX: M ROOM/BED: D.1139 AUTHOR: GI,DOC PHYSICIAN: REFERRING PHYSICIAN: KRUPA CHAN MD DATE OF SERVICE: 04/16/20 Discharge Plan Patient Name: KORIN DE LA VEGA Facility: [facility]:[place] : 1955 Planned Disposition: Anticipated Discharge Date: Discharge Date: Expected LOS: Initial Reviewer: [id number] Initial Review Date: 04/13/2020 Generated: 04/16/20 4:51 pm Comments DCP- Discharge Planning Updated by [email or web address]: Kimberli Mcfadden on 04/16/20 2:[address] Patient Name: KORIN DE LA VEGA Admission Status: ER Accout number: [id number] Admission Date: 04-13-2020 : 1955 Admission Diagnosis:CHEST PAIN, UNSPECIFIED Attending: GE CHAN Current LOS: 3 Anticipated DC Date: Planned Disposition: Primary Insurance: [employer] [facility] Discharge Planning Comments: CM met with patient to complete initial dc planning assessment. CM educated patient on the CM role and verbal consent given by patient to complete assessment. CM verified patient's address, phone number, and emergency contact phone numbers. Patient lives at home with his Seymour [phone]. At discharge patient plans to return home and feels this is a safe discharge. CM discussed availability of home health, rehab services, and medical equipment. Patient denied known discharge needs at this time. Declination signed for home health. CM stated patient can change his mind and home health can be provided by his PCP after discharge. Stated CM can assist his PCP in setting it up. Pt does not have a qualifying diagnosis for home nebs. CM provided pt with [facility] [phone] who can provide nebulizer machine for 30 dollars/. Nursing will call in medications per order. Transportation provider at discharge will be Seymour. CM will continue to follow and will assist as needed with dc plans/needs. DC IMM delivered, explained, signed by the patient, and placed in chart. Signed form also left with the patient. Continuous Dryout Operator Helper: Kimberli Mcfadden DCPIA - Discharge Planning Initial Assessment Updated by [id number]: Kimberli Mcfadden on 04/16/20 2:49 pm * Is the patient Alert and Oriented? Yes * How many steps to enter\exit or inside your home? 5/0 * PCP Vi * Pharm[facility] * Preadmission Environment Home with Family * ADLs Independent * Equipment Cane * List name and contact numbers for known caregivers / representatives who currently or will assist patient after discharge: SEYMOUR PANTOJA [phone] * Verbal permission to speak to the caregivers and representatives has been obtained from the patient. Yes * Community resources currently utilized None * Additional services required to return to the preadmission environment? No * Can the patient safely return to the preadmission environment? Yes * Has this patient been hospitalized within the prior 30 days at any hospital? No External Providers External Provider: [facility] Contact Date: Service Request Date: Service Type: Resolution: Reviewer: Comments: Coverage Notice Reviewer: [id number] - Kimberli Mcfadden Notice Issued Date-Time: 04/16/2020 14:00 Notice Type: IM Discharge Notice Notice Delivered To: Patient Relationship to Patient: Mirror Polisher Name: Delivery Method: HAND - Hand Delivered Joie Days: Prior Verbal Notification: Recipient Understood Notice: Yes Recipient Signature: Yes Med Rec Note Co-signed by Attending: Coverage Notice Comment: DC IMM DELIVERED Reviewer: [id number] Jerald Mcfadden Notice Issued Date-Time: 04/16/2020 14:00 Notice Type: Patient Choice Letter Notice Delivered To: Patient Relationship to Patient: Mirror Polisher Name: Delivery Method: HAND - Hand Delivered Joie Days: Prior Verbal Notification: Recipient Understood Notice: Yes Recipient Signature: Yes Med Rec Note Co-signed by Attending: Coverage Notice Comment: NEBS WITH [facility]. DECLINATIN FOR HH. Last DP export: 04/16/20 2:04 p Patient Name: KORIN DE LA VEGA Page [phone] at 1552 All edits/amendments must be made on the electronic document DICTATION DATE: 04/16/201550 SUPERVISOR SCRAP PREPARATION: YASIR 04/16/201550 RPT#: [id number] DC DATE: STATUS: ADM IN [facility] [address] [place] [address] END OF REPORT
--- NOTE | 2020-04-16 16:00 | MORECARE ---
CASE MANAGEMENT DISCHARGE SUMMARY PATIENT: KORIN DE LA VEGA UNIT: [id number] ADM DATE: 04/13/20 AGE: 64 : 51 SEX: M ROOM/BED: D.0749 AUTHOR: GI,DOC PHYSICIAN: REFERRING PHYSICIAN: KRUPA CHAN MD DATE OF SERVICE: 04/16/20 Discharge Plan Patient Name: KORIN DE LA VEGA Facility: [facility]:[place] : 1955 Planned Disposition: Anticipated Discharge Date: Discharge Date: Expected LOS: Initial Reviewer: [id number] Initial Review Date: 04/13/2020 Generated: 04/16/20 4:59 pm Comments DCP- Discharge Planning Updated by [email or web address]: Kimberli Edds on 04/16/20 2:[address] CM SPOKE WITH DR TERRY ABOUT NEBULIZERS. DR TERRY STATES HE HAS COPD. CM SPOKE WITH PATIENT WHO HAS AGREED TO USE [employer] [facility] PATIENT DME PROVIDER IN [place]. CHOICE SIGNED. C SPOKE WITH FAUSTINA AT [phone] AT [facility] AND FAXED REFERRAL. ELIO BUCHANAN DCP- Discharge Planning Updated by [email or web address]: Kimberli Edds on 04/16/20 2:[address] Patient Name: KORIN DE LA VEGA Admission Status: ER Accout number: [id number] Admission Date: 04-13-2020 : 1955 Admission Diagnosis:CHEST PAIN, UNSPECIFIED Attending: GE CHAN Current LOS: 3 Anticipated DC Date: Planned Disposition: Primary Insurance: [employer] [facility] Discharge Planning Comments: CM met with patient to complete initial dc planning assessment. CM educated patient on the CM role and verbal consent given by patient to complete assessment. CM verified patient's address, phone number, and emergency contact phone numbers. Patient lives at home with his Seymour [phone]. At discharge patient plans to return home and feels this is a safe discharge. CM discussed availability of home health, rehab services, and medical equipment. Patient denied known discharge needs at this time. Declination signed for home health. CM stated patient can change his mind and home health can be provided by his PCP after discharge. Stated CM can assist his PCP in setting it up. Pt does not have a qualifying diagnosis for home nebs. CM provided pt with [facility] [phone] who can provide nebulizer machine for 30 dollars/. Nursing will call in medications per order. Transportation provider at discharge will be [place]ym[place]. CM will continue to follow and will assist as needed with dc plans/needs. DC IMM delivered, explained, signed by the patient, and placed in chart. Signed form also left with the patient. Roofer Helper Vinyl Coating: Kimberli Buchanan DCPIA - Discharge Planning Initial Assessment Updated by [id number]: Kimberli Buchanan on 04/16/20 2:49 pm * Is the patient Alert and Oriented? Yes * How many steps to enter\exit or inside your home? 5/0 * PCP Vi * Pharm[facility] * Preadmission Environment Home with Family * ADLs Independent * Equipment Cane * List name and contact numbers for known caregivers / representatives who currently or will assist patient after discharge: SEYMOUR PANTOJA [phone] * Verbal permission to speak to the caregivers and representatives has been obtained from the patient. Yes * Community resources currently utilized None * Additional services required to return to the preadmission environment? No * Can the patient safely return to the preadmission environment? Yes * Has this patient been hospitalized within the prior 30 days at any hospital? No Coverage Notice Reviewer: [id number] Jerald Buchanan Notice Issued Date-Time: 04/16/2020 14:00 Notice Type: IM Discharge Notice Notice Delivered To: Patient Relationship to Patient: Kindergarten Aide Name: Delivery Method: HAND - Hand Delivered Joie Days: Prior Verbal Notification: Recipient Understood Notice: Yes Recipient Signature: Yes Med Rec Note Co-signed by Attending: Coverage Notice Comment: DC IMM DELIVERED Reviewer: [id number] Jerald Buchanan Notice Issued Date-Time: 04/16/2020 14:00 Notice Type: Patient Choice Letter Notice Delivered To: Patient Relationship to Patient: Kindergarten Aide Name: Delivery Method: HAND - Hand Delivered Joie Days: Prior Verbal Notification: Recipient Understood Notice: Yes Recipient Signature: Yes Med Rec Note Co-signed by Attending: Coverage Notice Comment: NEBS WITH [facility]. DECLINATIN FOR HH. Last DP export: 04/16/20 2:52 p Patient Name: KORIN DE LA VEGA Page [id number] at 1600 All edits/amendments must be made on the electronic document DICTATION DATE: 04/16/201558 PRINTER HELPER: YASIR 04/16/201558 RPT#: [id number] DC DATE: STATUS: ADM IN [facility] [address] [place] [address] END OF REPORT
--- NOTE | 2020-04-16 17:27 | MORECARE ---
CASE MANAGEMENT DISCHARGE SUMMARY PATIENT: KORIN DE LA VEGA UNIT: [id number] ADM DATE: 04/13/20 AGE: 64 : 51 SEX: M ROOM/BED: D.5177 AUTHOR: GI,DOC PHYSICIAN: REFERRING PHYSICIAN: KRUPA CHAN MD DATE OF SERVICE: 04/16/20 Discharge Plan Patient Name: KORIN DE LA VEGA Facility: [facility]:[place] : 1955 Planned Disposition: Anticipated Discharge Date: Discharge Date: Expected LOS: Initial Reviewer: [id number] Initial Review Date: 04/13/2020 Generated: 04/16/20 6:26 pm Comments DCP- Discharge Planning Updated by [email or web address]: Kimberlirubio Buchanan on 04/16/20 2:[address] CM SPOKE WITH DR TERRY ABOUT NEBULIZERS. DR TERRY STATES HE HAS COPD. CM SPOKE WITH PATIENT WHO HAS AGREED TO USE [employer] PATIENT DME PROVIDER IN [place]. CHOICE SIGNED. C SPOKE WITH FAUSTINA AT [phone] AT [facility] AND FAXED REFERRAL. ELIO BUCHANAN DCP- Discharge Planning Updated by [email or web address]: Kimberli Edds on 04/16/20 2:[address] Patient Name: KORIN DE LA VEGA Admission Status: ER Accout number: [id number] Admission Date: 04-13-2020 : 1955 Admission Diagnosis:CHEST PAIN, UNSPECIFIED Attending: GE CHAN Current LOS: 3 Anticipated DC Date: Planned Disposition: Primary Insurance: [employer] [facility] Discharge Planning Comments: CM met with patient to complete initial dc planning assessment. CM educated patient on the CM role and verbal consent given by patient to complete assessment. CM verified patient's address, phone number, and emergency contact phone numbers. Patient lives at home with his Seymour [phone]. At discharge patient plans to return home and feels this is a safe discharge. CM discussed availability of home health, rehab services, and medical equipment. Patient denied known discharge needs at this time. Declination signed for home health. CM stated patient can change his mind and home health can be provided by his PCP after discharge. Stated CM can assist his PCP in setting it up. Pt does not have a qualifying diagnosis for home nebs. CM provided pt with [facility] [phone] who can provide nebulizer machine for 30 dollars/. Nursing will call in medications per order. Transportation provider at discharge will be Seym[place]. CM will continue to follow and will assist as needed with dc plans/needs. DC IMM delivered, explained, signed by the patient, and placed in chart. Signed form also left with the patient. Sample Coordinator: Kimberli Buchanan DCPIA - Discharge Planning Initial Assessment Updated by [id number]: Kimberli Buchanan on 04/16/20 2:49 pm * Is the patient Alert and Oriented? Yes * How many steps to enter\exit or inside your home? 5/0 * PCP Vi * Pharmacy [facility] * Preadmission Environment Home with Family * ADLs Independent * Equipment Cane * List name and contact numbers for known caregivers / representatives who currently or will assist patient after discharge: SEYMOUR PANTOJA [phone] * Verbal permission to speak to the caregivers and representatives has been obtained from the patient. Yes * Community resources currently utilized None * Additional services required to return to the preadmission environment? No * Can the patient safely return to the preadmission environment? Yes * Has this patient been hospitalized within the prior 30 days at any hospital? No Coverage Notice Reviewer: [id number] Jerald Buchanan Notice Issued Date-Time: 04/16/2020 14:00 Notice Type: IM Discharge Notice Notice Delivered To: Patient Relationship to Patient: Skeet Operator Name: Delivery Method: HAND - Hand Delivered Joie Days: Prior Verbal Notification: Recipient Understood Notice: Yes Recipient Signature: Yes Med Rec Note Co-signed by Attending: Coverage Notice Comment: DC IMM DELIVERED Reviewer: [id number] Jerald Buchanan Notice Issued Date-Time: 04/16/2020 14:00 Notice Type: Patient Choice Letter Notice Delivered To: Patient Relationship to Patient: Skeet Operator Name: Delivery Method: HAND - Hand Delivered Joie Days: Prior Verbal Notification: Recipient Understood Notice: Yes Recipient Signature: Yes Med Rec Note Co-signed by Attending: Coverage Notice Comment: NEBS WITH [facility]. DECLINATIN FOR HH. Last DP export: 04/16/20 3:00 p Patient Name: KORIN DE LA VEGA Page 43005 at 1727 All edits/amendments must be made on the electronic document DICTATION DATE: 04/16/201725 FIELD COUNSEL: YASIR 04/16/201725 RPT#: [id number] DC DATE: STATUS: ADM IN [facility] [address] [place] [address] END OF REPORT
--- NOTE | 2020-04-16 19:00 | NUR ---
RECEIVED BEDSIDE REPORT. PATIENT IS ALERT AND ORIENTED, RESTING COMFORTABLY IN BED. RESPIRATIONS ARE EVEN AND UNLABORED. NO S/S OF DISTRESS. NO C/O PAIN. CALL LIGHT WITHIN REACH. WILL CPOC.
[2020-04-16 20:54] VITALS: BP 144/77
--- NOTE | 2020-04-16 23:00 | NUR ---
PATIENT RECEIVING IV ANTIBIOTIC. PATIENT IS RESTING COMFORTABLY IN BED. RESPIRATIONS ARE EVEN AND UNLABORED. NO S/S OF DISTRESS. NO C/O PAIN. CALL LIGHT WITHIN REACH. WILL CPOC.
--- NOTE | 2020-04-17 02:01 | NUR ---
PATIENT RESTING COMFORTABLY IIN BED. RESPIRATIONS ARE EVEN AND UNLABORED. NO S/S OF DISTRESS. NO C/O PAIN. CALL LIGHT WITHIN REACH. WILL CPOC.
[2020-04-17 04:46] VITALS: BP 140/72
[2020-04-17 06:33] LABS: BASOPHILS 0.3 % (0-2); EOSINOPHILS 1.8 % (0-7); HEMATOCRIT 34.7 % (42.0-54.0); HEMOGLOBIN 10.9 g/dL (13.5-17.5); IMMATURE GRANULOCYTES 0.2 % (0-5); LYMPHOCYTES 14.9 % (15-50); MCH 27.9 pg (26.0-34.0); MCHC 31.4 g/dL (31.0-37.0); MCV 88.7 fL (80.0-100.0); MEAN PLATELET VOLUME 8.7 fL (7.4-10.4); MONOCYTES 9.9 % (2-11); NEUTROPHILS 72.9 % (40-80); PLATELET COUNT 319 10x3/uL (130-400); RBC 3.91 10x6/uL (4.20-6.10); RDW 17.3 % (11.5-14.5); WBC 6.7 10x3/uL (4.8-10.8)
--- NOTE | 2020-04-17 07:00 | NUR ---
RECEIVED REPORT. ASSUMED CARE OF PATIENT. BEDSIDE SHIFT REPORT COMPLETE. WHITE BOARD UPDATED. PATIENT RESTING IN BED WITH EYES OPEN, AT BEDSIDE. PATIENT DENIES ANY NEEDS AT THIS TIME. NO DISTRESS. SR, RATE OF 77 ON TELEMETRY AT THIS TIME.
[2020-04-17 07:04] LABS: ALBUMIN 1.9 g/dL (3.4-5.0); ALKALINE PHOSPHATASE 53 U/L (30-120); ALT (SGPT) 43 U/L (10-68); BILIRUBIN - TOTAL 0.49 mg/dL (0.2-1.3); CALCIUM 8.3 mg/dL (8.5-10.1); CARBON DIOXIDE 24.1 mmol/L (21.0-32.0); CHLORIDE - SERUM 103 mmol/L (98-107); GLUCOSE 92 mg/dL (74-106); POTASSIUM - SERUM 3.8 mmol/L (3.5-5.1); PROTEIN - SERUM 6.7 g/dL (6.4-8.2); SODIUM 134 mmol/L (136-145); VANCOMYCIN - TROUGH 23.5 ug/mL (10.0-20.0); eGFR NON AFRICAN AMERICAN 79 mL/min (90-120)
[2020-04-17 07:07] LABS: CALC OSMOLALITY 266 mosm/kg (275-300); UREA NITROGEN 10 mg/dL (7-18)
[2020-04-17 10:58] VITALS: BP 160/72
[2020-04-17 11:20] VITALS: Ht 182.9 cm; Wt 71.2 kg
--- NOTE | 2020-04-17 12:15 | NUR ---
20 GAUGE IV REMOVED FROM LEFT FOREARM. CATHETER TIP INTACT. NO BLEEDING FROM SITE. 2X2 GAUZE APPLIED AND SECURED WITH BANDAID. TOLERATED IV REMOVAL WELL.
--- NOTE | 2020-04-17 12:20 | NUR ---
TELEMETRY REMOVED AND RETURNED TO WOOL TAMPER PT IS BEING DISCHARGED TO HOME.
--- NOTE | 2020-04-17 12:37 | NUR ---
PATIENT LEFT UNIT VIA WHEELCHAIR AT THIS TIME. PATIENT DISCHARGED TO HOME WITH ALL PERSONAL BELONGINGS WITH HIS SPOUSE. NO DISTRESS UPON LEAVING UNIT.
--- NOTE | 2020-04-17 15:02 | MORECARE ---
CASE MANAGEMENT DISCHARGE SUMMARY PATIENT: KORIN DE LA VEGA UNIT: [id number] ADM DATE: 04/13/20 AGE: 64 : 51 SEX: M ROOM/BED: D.6595 AUTHOR: GI,DOC PHYSICIAN: REFERRING PHYSICIAN: KRUPA CHAN MD DATE OF SERVICE: 04/17/20 Discharge Plan Patient Name: KORIN DE LA VEGA Facility: [facility]:[place] : 1955 Planned Disposition: Anticipated Discharge Date: Discharge Date: 04/17/2020 Expected LOS: Initial Reviewer: [id number] Initial Review Date: 04/13/2020 Generated: 04/17/20 4:01 pm DCP- Discharge Planning Updated by [email or web address]: Kimberli Buchanan on 04/16/20 2:[address] CM SPOKE WITH DR TERRY ABOUT NEBULIZERS. DR TERRY STATES HE HAS COPD. CM SPOKE WITH PATIENT WHO HAS AGREED TO USE [employer] PATIENT DME PROVIDER IN [place]. CHOICE SIGNED. C SPOKE WITH FAUSTINA AT [phone] AT [facility] AND FAXED REFERRAL. ELIO BUCHANAN DCP- Discharge Planning Updated by [id number]: Kimberli Bogdan on 04/16/20 2:[address] Patient Name: KORIN DE LA VEGA Admission Status: ER Accout number: [id number] Admission Date: 04-13-2020 : 1955 Admission Diagnosis:CHEST PAIN, UNSPECIFIED Attending: GE CHAN Current LOS: 3 Anticipated DC Date: Planned Disposition: Primary Insurance: [employer] [facility] Discharge Planning Comments: CM met with patient to complete initial dc planning assessment. CM educated patient on the CM role and verbal consent given by patient to complete assessment. CM verified patient's address, phone number, and emergency contact phone numbers. Patient lives at home with his Seymour [phone]. At discharge patient plans to return home and feels this is a safe discharge. CM discussed availability of home health, rehab services, and medical equipment. Patient denied known discharge needs at this time. Declination signed for home health. CM stated patient can change his mind and home health can be provided by his PCP after discharge. Stated CM can assist his PCP in setting it up. Pt does not have a qualifying diagnosis for home nebs. CM provided pt with [facility] [phone] who can provide nebulizer machine for 30 dollars/. Nursing will call in medications per order. Transportation provider at discharge will be [place]. CM will continue to follow and will assist as needed with dc plans/needs. DC IMM delivered, explained, signed by the patient, and placed in chart. Signed form also left with the patient. Thermal Cutting Machine Operator: Kimberli Buchanan DCPIA - Discharge Planning Initial Assessment Updated by [id number]: Kimberli Buchanan on 04/16/20 2:49 pm * Is the patient Alert and Oriented? Yes * How many steps to enter\exit or inside your home? 5/0 * PCP Vi * Pharmacy [facility] * Preadmission Environment Home with Family * ADLs Independent * Equipment Cane * List name and contact numbers for known caregivers / representatives who currently or will assist patient after discharge: SEYMOUR PANTOJA [phone] * Verbal permission to speak to the caregivers and representatives has been obtained from the patient. Yes * Community resources currently utilized None * Additional services required to return to the preadmission environment? No * Can the patient safely return to the preadmission environment? Yes * Has this patient been hospitalized within the prior 30 days at any hospital? No Coverage Notice Reviewer: [id number] Jerald Buchanan Notice Issued Date-Time: 04/16/2020 14:00 Notice Type: IM Discharge Notice Notice Delivered To: Patient Relationship to Patient: Drop Shipment Clerk Name: Delivery Method: HAND - Hand Delivered Joie Days: Prior Verbal Notification: Recipient Understood Notice: Yes Recipient Signature: Yes Med Rec Note Co-signed by Attending: Coverage Notice Comment: DC IMM DELIVERED Reviewer: [id number] Jerald Buchanan Notice Issued Date-Time: 04/16/2020 14:00 Notice Type: Patient Choice Letter Notice Delivered To: Patient Relationship to Patient: Drop Shipment Clerk Name: Delivery Method: HAND - Hand Delivered Joie Days: Prior Verbal Notification: Recipient Understood Notice: Yes Recipient Signature: Yes Med Rec Note Co-signed by Attending: Coverage Notice Comment: NEBS WITH [facility] PATIENT. DECLINATIN FOR HH. Last DP export: 04/16/20 4:27 p Patient Name: KORIN DE LA VEGA Page 04358 at 1502 All edits/amendments must be made on the electronic document DICTATION DATE: 04/17/20 1501 PRECISE WINDER: YASIR 04/17/20 1501 RPT#: [id number] DC DATE:04/17/20 STATUS: DIS IN [facility] [address] [place] [address] END OF REPORT
--- NOTE | 2020-04-18 17:18 | MORECARE ---
CASE MANAGEMENT DISCHARGE SUMMARY PATIENT: KORIN DE LA VEGA UNIT: [id number] ADM DATE: 04/13/20 AGE: 64 : 53 SEX: M ROOM/BED: D.1361 AUTHOR: DEBBI ANGELO PHYSICIAN: REFERRING PHYSICIAN: KRUPA CHAN MD DATE OF SERVICE: 04/18/20 Discharge Plan Patient Name: KORIN DE LA VEGA Facility: [facility]:[place] : 1955 Planned Disposition: Anticipated Discharge Date: Discharge Date: 04/17/2020 Expected LOS: Initial Reviewer: [id number] Initial Review Date: 04/13/2020 Generated: 04/18/20 6:17 pm Comments DCP- Discharge Planning Updated by [id number]: Clarisa Robledo on 04/18/20 4:[address] CM received notice of discharge and need for Nebulizer. CM reviewed notes and realized that nebulizer and updrafts was already in process. CM called [facility] Patient [phone] CM spoke with Jayden [phone]. CM explained that it looked like the referral was sent over yesterday for nebulizer and updraft. Jayden stated the patient will not get his updraft meds until Sunday and they will be mailed. CM explained that we will give patient enough to get him through until his shipment comes in Sunday. Jayden stated that he can deliver the nebulizer to patient's home when he is discharged. Just have patient to call his cell [phone]. Jayden stated I'm in [place] and will just be easier to deliver to his home. CM will continue to follow and assist as needed with discharge planning / needs. DCP- Discharge Planning Updated by [id number]: Kimberli Buchanan on 04/16/20 2:[address] CM SPOKE WITH DR TERRY ABOUT NEBULIZERS. DR TERRY STATES HE HAS COPD. CM SPOKE WITH PATIENT WHO HAS AGREED TO USE [facility] PATIENT DME PROVIDER IN [place]. CHOICE SIGNED. C SPOKE WITH FAUSTINA AT [phone] AT [facility] PT AND FAXED REFERRAL. ELIO BUCHANAN DCP- Discharge Planning Updated by [id number]: Kimberli Samds on 04/16/20 2:[address] Patient Name: KORIN DE LA VEGA Admission Status: ER Accout number: [id number] Admission Date: 04-13-2020 : 1955 Admission Diagnosis:CHEST PAIN, UNSPECIFIED Attending: GE CHAN Current LOS: 3 Anticipated DC Date: Planned Disposition: Primary Insurance: [employer] [facility] Discharge Planning Comments: CM met with patient to complete initial dc planning assessment. CM educated patient on the CM role and verbal consent given by patient to complete assessment. CM verified patient's address, phone number, and emergency contact phone numbers. Patient lives at home with his Seymour [phone]. At discharge patient plans to return home and feels this is a safe discharge. CM discussed availability of home health, rehab services, and medical equipment. Patient denied known discharge needs at this time. Declination signed for home health. CM stated patient can change his mind and home health can be provided by his PCP after discharge. Stated CM can assist his PCP in setting it up. Pt does not have a qualifying diagnosis for home nebs. CM provided pt with [facility] [phone] who can provide nebulizer machine for 30 dollars/. Nursing will call in medications per order. Transportation provider at discharge will be Seymour. CM will continue to follow and will assist as needed with dc plans/needs. DC IMM delivered, explained, signed by the patient, and placed in chart. Signed form also left with the patient. Motorized Squad Captain: Kimberli Buchanan DCPIA - Discharge Planning Initial Assessment Updated by [id number]: Kimberli Buchanan on 04/16/20 2:49 pm * Is the patient Alert and Oriented? Yes * How many steps to enter\exit or inside your home? 5/0 * PCP Vi * Pharmacy [facility] * Preadmission Environment Home with Family * ADLs Independent * Equipment Cane * List name and contact numbers for known caregivers / representatives who currently or will assist patient after discharge: SEYMOUR [phone] * Verbal permission to speak to the caregivers and representatives has been obtained from the patient. Yes * Community resources currently utilized None * Additional services required to return to the preadmission environment? No * Can the patient safely return to the preadmission environment? Yes * Has this patient been hospitalized within the prior 30 days at any hospital? No Coverage Notice Reviewer: [id number] Jerald Buchanan Notice Issued Date-Time: 04/16/2020 14:00 Notice Type: IM Discharge Notice Notice Delivered To: Patient Relationship to Patient: Christian Education Director Name: Delivery Method: HAND - Hand Delivered Joie Days: Prior Verbal Notification: Recipient Understood Notice: Yes Recipient Signature: Yes Med Rec Note Co-signed by Attending: Coverage Notice Comment: DC IMM DELIVERED Reviewer: [id number] Jerald Buchanan Notice Issued Date-Time: 04/16/2020 14:00 Notice Type: Patient Choice Letter Notice Delivered To: Patient Relationship to Patient: Christian Education Director Name: Delivery Method: HAND - Hand Delivered Joie Days: Prior Verbal Notification: Recipient Understood Notice: Yes Recipient Signature: Yes Med Rec Note Co-signed by Attending: Coverage Notice Comment: NEBS WITH [facility] PATIENT. DECLINATIN FOR HH. Last DP export: 04/17/20 2:02 p Patient Name: KORIN DE LA VEGA Page [phone] at 1718 All edits/amendments must be made on the electronic document DICTATION DATE: 04/18/201716 CASTING HOUSE LABORER: YASIR 04/18/201716 RPT#: [id number] DC DATE:04/17/20 STATUS: DIS IN [facility] [address] [place] [address] END OF REPORT
[2020-04-19 13:10] LABS: IMMUNOGLOBULIN E 1795 IU/mL (6-495)
== END 2020-04-17 12:37 | disposition home or self-care (01) | DRG 180 ==
LOC: D.ER 01:25 → EDBD 01:25 → D.M2 02:11
PROVIDERS: Internal Medicine Interventional Cardiology; Internal Medicine Pulmonary Disease; ADMIT Emergency Medicine; ATTEND Emergency Medicine
PROC: B2151ZZ Fluoroscopy of Left Heart using Low Osmolar Contrast (ICD-10-PCS; 2020-04-13)
PROC: 4A023N7 Measurement of Cardiac Sampling and Pressure, Left Heart, Percutaneous Approach (ICD-10-PCS; 2020-04-13)
PROC: 4A033BC Measurement of Arterial Pressure, Coronary, Percutaneous Approach (ICD-10-PCS; 2020-04-13)
PROC: B2111ZZ Fluoroscopy of Multiple Coronary Arteries using Low Osmolar Contrast (ICD-10-PCS; principal; 2020-04-13 14:00)
PROC: 0W9B3ZZ Drainage of Left Pleural Cavity, Percutaneous Approach (ICD-10-PCS; 2020-04-14)
PROC: 0BBJ3ZX Excision of Left Lower Lung Lobe, Percutaneous Approach, Diagnostic (ICD-10-PCS; 2020-04-14)
DX: C34.32 Malignant neoplasm of lower lobe, left bronchus or lung (principal); I50.31 Acute diastolic (congestive) heart failure; J18.8 Other pneumonia, unspecified organism; R04.2 Hemoptysis; E87.1 Hypo-osmolality and hyponatremia; F17.203 Nicotine dependence unspecified, with withdrawal; J44.1 Chronic obstructive pulmonary disease with (acute) exacerbation; J44.0 Chronic obstructive pulmonary disease with (acute) lower respiratory infection; J90 Pleural effusion, not elsewhere classified; I50.32 Chronic diastolic (congestive) heart failure; R91.8 Other nonspecific abnormal finding of lung field; I48.91 Unspecified atrial fibrillation; Z72.89 Other problems related to lifestyle

== ENCOUNTER → 2020-06-25 09:24 | Outpatient (CLI) | payer MEDICARE ==
[2020-04-17 11:20] VITALS: BMI 21.3
[~2020-06-25 09:24] MED LIST: ALBUTEROL SULF8.5 GM INH; CARDIZEM30 MG; ELIQUIS5 MG; LEVAQUIN750 MG PO; MUCINEX DM ER1 EAC1 PO; OMNICEF300 MG PO; PACERONE200 MG; PULMICORT0.5 MG/21 INH; TESSALON PERLE100 MG PO; VITAMIN D5000 UNI1; XOPENEX 0.0.63 MG/3 UPD
== END | disposition home or self-care (01) ==
LOC: D.LAB 09:18
PROVIDERS: ATTEND Internal Medicine Pulmonary Disease
DX: Z11.59 Encounter for screening for other viral diseases (principal)

== ENCOUNTER → 2020-12-17 10:28 | Outpatient (CLI) | payer MEDICARE ==
[2020-08-17 12:30] VITALS: BMI 16.3
[~2020-12-17 10:28] MED LIST changes: +ATROVENT 0.02%2.5 ML UPD; +ELIQUIS5 MG PO; +HYDROCODON-ACE1 EAC7 PO; +K-DUR20 MEQ PO
== END | disposition home or self-care (01) ==
LOC: D.LAB 10:28
PROVIDERS: ATTEND Internal Medicine Pulmonary Disease
DX: Z11.52 Encounter for screening for COVID-19 (principal)

== ENCOUNTER → 2020-12-23 08:34 | Outpatient (CLI) | payer MEDICARE ==
[2020-08-17 12:30] VITALS: BMI 16.3
== END | disposition home or self-care (01) ==
LOC: D.RT 08:34
PROVIDERS: ATTEND Internal Medicine Pulmonary Disease
DX: J44.9 Chronic obstructive pulmonary disease, unspecified (principal)

== ENCOUNTER 2021-03-07 10:41 | Inpatient (IN) | payer MEDICARE ==
[~2021-03-07] VITALS: Ht 190.5 cm; Wt 58.5 kg
[2021-03-07 12:22] LABS: ANION GAP 10.1 mmol/L (8-16); CALCIUM 8.4 mg/dL (8.5-10.1); CARBON DIOXIDE 28.9 mmol/L (21.0-32.0); CREATININE - SERUM 1.3 mg/dL (0.6-1.3)
[2021-03-07 12:23] LABS: BASOPHILS 0.3 % (0-2); EOSINOPHILS 0.1 % (0-7); HEMATOCRIT 44.6 % (42.0-54.0); HEMOGLOBIN 14.2 g/dL (13.5-17.5); LYMPHOCYTES 2.7 % (15-50); MCH 27.7 pg (26.0-34.0); MCHC 31.8 g/dL (31.0-37.0); MCV 87.3 fL (80.0-100.0); MEAN PLATELET VOLUME 8.7 fL (7.4-10.4); MONOCYTES 1.9 % (2-11); PLATELET COUNT 368 10x3/uL (130-400); RDW 17.9 % (11.5-14.5); WBC 18.2 10x3/uL (4.8-10.8)
[2021-03-07 12:29] LABS: ALBUMIN 1.9 g/dL (3.4-5.0); BILIRUBIN - TOTAL 0.59 mg/dL (0.2-1.3); PROTEIN - SERUM 7.2 g/dL (6.4-8.2)
[2021-03-07 13:54] VITALS: BP 159/60
[2021-03-07 14:22] LABS: BACTERIA FEW HPF (<MOD); BILIRUBIN NEGATIVE (NEGATIVE); EPITHELIAL CELL CAST 4 LPF (NONE SEEN); GRANULAR CAST 4 LPF (0-1); KETONE NEGATIVE mg/dL (< 1+); NITRITE NEGATIVE (NEGATIVE); SQUAMOUS EPITHELIAL 1 HPF (0-4); UROBILINOGEN 2 mg/dL (< 2); WAXY CAST 2 LPF (0-1); WHITE CELLS - URINE 24 HPF (0-1)
[2021-03-07 16:27] VITALS: BP 184/75; BMI 16.1
[2021-03-07 20:00] VITALS: BP 147/61
--- NOTE | 2021-03-07 20:00 | NUR ---
REPORT RECEIVED. PT A&O, UP IN BED WITH AT BEDSIDE. NO S/S OF DISTRESS OBSERVED. RR EVEN & UNLABORED ON RA. IV TO L FA 22G W/ NS @ 75CC/HR. SR 51 ON TELE. BED LOCKED AND LOWERED, CL IN REACH. ASSESSMENT COMPLETE. WILL CONT TO MONITOR.
[2021-03-08] VITALS: BP 155/71
[2021-03-08 04:00] VITALS: BP 148/69
[2021-03-08 05:42] LABS: BASOPHILS 0.1 % (0-2); EOSINOPHILS 0.4 % (0-7); HEMATOCRIT 41.5 % (42.0-54.0); HEMOGLOBIN 13.2 g/dL (13.5-17.5); MCH 27.9 pg (26.0-34.0); MCHC 31.8 g/dL (31.0-37.0); MCV 87.5 fL (80.0-100.0); MEAN PLATELET VOLUME 8.9 fL (7.4-10.4); MONOCYTES 3.9 % (2-11); NEUTROPHILS 91.6 % (40-80); PLATELET COUNT 312 10x3/uL (130-400); RBC 4.74 10x6/uL (4.20-6.10); RDW 17.7 % (11.5-14.5); WBC 15.3 10x3/uL (4.8-10.8)
[2021-03-08 06:27] LABS: ALBUMIN 1.7 g/dL (3.4-5.0); BILIRUBIN - TOTAL 0.35 mg/dL (0.2-1.3); CALCIUM 7.9 mg/dL (8.5-10.1); CARBON DIOXIDE 28.8 mmol/L (21.0-32.0); CREATININE - SERUM 1.3 mg/dL (0.6-1.3); MAGNESIUM - SERUM 1.9 mg/dL (1.8-2.4); POTASSIUM - SERUM 3.8 mmol/L (3.5-5.1); PROTEIN - SERUM 6.3 g/dL (6.4-8.2)
[2021-03-08 08:35] VITALS: BP 150/63
--- NOTE | 2021-03-08 10:25 | NUR ---
PATIENT AAOX4, RESP EVEN AND NON LABORED, NO S/S OF DISTRESS, MEDICATIONS ADMINISTERED WITH NO COMPLICATIONS, IV ANTIBIOTICS INFUSING, NO FURTHER NEEDS AT THIS TIME, CLIR, BLP
[2021-03-08 12:20] VITALS: BP 147/63
[2021-03-08 13:08] VITALS: Ht 190.5 cm; Wt 58.5 kg
[2021-03-08 16:13] VITALS: BP 138/57
[2021-03-08 20:00] VITALS: BP 150/56
--- NOTE | 2021-03-08 20:00 | NUR ---
PT WAS ADMITTED ON 03/07/21 FOR PNEUMONIA AND DEHYDRATIION. PT YEARS AGO HAD A LLL LOBECTOMY. HE IS A/O/O. HIS DAUGHTER IS AT THE BEDSIDE TO HELP ASSIST PT NEEDED. HE HAS A LFOREARM IV WITH NS AT 75CC/HR HE IS ON THE TELE MONITOR WITH SB RATE 50. HE TAKES ALL HIS MEDS WELL AT ONE TIME. HE HAS A SKIN TEAR BHARAT HIS RIGHT ARM. MULTIPLE BRUISES ALSO NOTED. HE DOES NOT C/O PAIN. ASSESSMENT COMPLETED.
[2021-03-09] VITALS: BP 146/54
[2021-03-09 04:00] VITALS: BP 152/58
[2021-03-09 06:22] LABS: BASOPHILS 0.3 % (0-2); EOSINOPHILS 0.8 % (0-7); HEMATOCRIT 38.3 % (42.0-54.0); HEMOGLOBIN 12.5 g/dL (13.5-17.5); LYMPHOCYTES 5.2 % (15-50); MCH 28.2 pg (26.0-34.0); MCHC 32.5 g/dL (31.0-37.0); MCV 86.8 fL (80.0-100.0); MEAN PLATELET VOLUME 9.1 fL (7.4-10.4); NEUTROPHILS 90.7 % (40-80); RBC 4.41 10x6/uL (4.20-6.10); RDW 17.9 % (11.5-14.5); WBC 14.8 10x3/uL (4.8-10.8)
[2021-03-09 06:36] LABS: PLATELET COUNT 246 10x3/uL (130-400)
[2021-03-09 06:51] LABS: INR 1.75 (0.85-1.17)
[2021-03-09 06:52] LABS: APTT 40.5 SECONDS (22.8-39.4)
[2021-03-09 06:56] LABS: ALBUMIN 1.5 g/dL (3.4-5.0); ANION GAP 10.6 mmol/L (8-16); BILIRUBIN - TOTAL 0.38 mg/dL (0.2-1.3); CALCIUM 7.7 mg/dL (8.5-10.1); CARBON DIOXIDE 28.8 mmol/L (21.0-32.0); CREATININE - SERUM 1.2 mg/dL (0.6-1.3); MAGNESIUM - SERUM 1.9 mg/dL (1.8-2.4); POTASSIUM - SERUM 3.4 mmol/L (3.5-5.1)
[2021-03-09 08:27] VITALS: BP 146/58
--- NOTE | 2021-03-09 09:34 | NUR ---
PATIENT AAOX4 RESP EVEN AND NON LABORED, NO S/S OF DISTRESS, MEDICATIONS ADMINISTERED WITH NO COMPLICATIONS, CARDIOLOGY STATED PATIENT EJECTION FRACTION IS NORMAL, NO HEART FAILURE, PULMONOLOGY STATED PATIENT NEEDS THORENCENTESIS, NO FURTHER NEEDS AT THIS TIME, CATARINO BENITES
[2021-03-09 11:45] VITALS: BP 141/63
[2021-03-09 15:56] VITALS: BP 132/61
[2021-03-09 20:00] VITALS: BP 115/41
[2021-03-10] VITALS: BP 136/61
[2021-03-10 04:00] VITALS: BP 154/64
--- NOTE | 2021-03-10 04:38 | NUR ---
PT DID NOT GET THORACENTESIS YESTERDAY. PT PLACED NPO AFTER MIDNIGHT, INFORMED BY XRAY THAT THE IR NURSE WOULD BE IN AFTER 0700. WILL CALL TO VERIFY PROCEDURE. NO C/O EXPRESSED DURING THE NIGHT. AT BEDSIDE. WILL CTM.
[2021-03-10 06:12] LABS: BASOPHILS 0.1 % (0-2); EOSINOPHILS 2.2 % (0-7); HEMATOCRIT 40.9 % (42.0-54.0); LYMPHOCYTES 6.7 % (15-50); MCH 27.8 pg (26.0-34.0); MCHC 31.7 g/dL (31.0-37.0); MCV 87.9 fL (80.0-100.0); MEAN PLATELET VOLUME 9.4 fL (7.4-10.4); MONOCYTES 3.1 % (2-11); NEUTROPHILS 87.9 % (40-80); PLATELET COUNT 235 10x3/uL (130-400); RBC 4.66 10x6/uL (4.20-6.10); RDW 17.9 % (11.5-14.5); WBC 12.5 10x3/uL (4.8-10.8)
[2021-03-10 06:46] LABS: ALBUMIN 1.6 g/dL (3.4-5.0); ALKALINE PHOSPHATASE 118 U/L (30-120); ALT (SGPT) 79 U/L (10-68); CALC OSMOLALITY 293 mosm/kg (275-300); CARBON DIOXIDE 30.2 mmol/L (21.0-32.0); CHLORIDE - SERUM 108 mmol/L (98-107); GLUCOSE 76 mg/dL (74-106); MAGNESIUM - SERUM 1.7 mg/dL (1.8-2.4); POTASSIUM - SERUM 3.5 mmol/L (3.5-5.1); PROTEIN - SERUM 6.3 g/dL (6.4-8.2); SODIUM 145 mmol/L (136-145); UREA NITROGEN 30 mg/dL (7-18); eGFR NON AFRICAN AMERICAN 79 mL/min (90-120)
[2021-03-10 07:47] LABS: INR 1.41 (0.85-1.17)
--- NOTE | 2021-03-10 08:07 | EC ---
PATIENT:KORIN DE LA VEGA DATE OF SERVICE: 03/07/21 SEX: M MEDICAL RECORD: [id number] DATE OF : [birth year] LOCATION:D.M2 D.210 AGE OF PATIENT: 65 ADMISSION DATE: 03/07/21 REFERRING PHYSICIAN: INTERPRETING PHYSICIAN: RIA BERG MD ECHOCARDIOGRAM REPORT ECHO CHARGES 4 ECHO COMPLETE Date: 03/08/21 CLINICAL DIAGNOSIS: CHF, AFIB ECHOCARDIOGRAPHIC MEASUREMENTS (adult normal given) AC root (d.<3.7cm) 2.8 cm LV Septum d (<1.2 cm> 1.0 cm Valve Excursion 1.5 cm LV Septum (systole) 1.6 cm Left Atria (s.<4.0cm> 3.8 cm LVPW d(<1.2cm) 1.1 cm RV (d.<2.3cm) 3.0 cm LVPW (sytole) 1.2 cm LV diastole(<5.6CM) 4.9 cm MV E-F(>70mm/sec) cm LV systole 3.4 cm LVOT Diameter 1.6 cm MV exc.(>10mm) 1.4 cm Est.ejection fraction (50-75%) % DOPPLER: LVIT cm/sec A 71 cm/sec E 79 cm/sec LA cm/sec RVSP 55 mmHg LVOT 118 cm/sec AOP1/2T m/s Asc. Ao 180 cm/sec RVOT 87 cm/sec RA cm/sec PA 115 cm/sec AV Gradient Peak 12.9 mmHg AV Mean 5.0 mmHg AV Area 1.5 cm MV Gradient Peak 3.7 mmHg MV Mean 1.1 mmHg MV Area cm COMMENTS: Machine Inspector: Arthur MILNER Faucet Polisher: 3 Dr. Carcamo TAPE# Pericardial Effusion N DATE OF SERVICE: Adequate 2D, color-flow imaging, spectral Doppler, and M-Mode FINDINGS: No LVH. LV internal dimensions are normal. Wall motion is normal. EF is greater than or equal to 55%. Aortic valve is tricuspid. No evidence of stenosis by Doppler interrogation. Left atrium is normal at 3.8 cm. Mitral valve shows no prolapse. Trace MR. Right-sided chambers are grossly normal. Mild TR. ECHOCARDIOGRAM REPORT [id number] KORIN DE LA VEGA TRANSINT:[id number] Voice Confirmation ID: [id number] DOCUMENT ID: [id number] RIA BERG MD at 0807 CC: [id number] DICTATION DATE: 03/08/21 151 TECHNOLOGY INTERNSHIP: 03/08/21 1551 ADM IN [facility] [address] [place] [address]
[2021-03-10 08:44] VITALS: BP 140/64
--- NOTE | 2021-03-10 11:00 | NUR ---
Nutrition Follow-up: NPO for thoracentesis. Pt reports eating majority of dinner last night. Denies N/V. Reports having diarrhea yesterday. Previously sent trial of Magic Cup; pt reports liking it and agreeable to receiving on trays. No new wt; last wt: 129# (03/07) Labs noted: Ca 8.0, Mg 1.7, Alb 1.6 -Rec resume diet when medically feasible. -Will order Magic Cup BID when diet advanced. -Need new wt. -RD follow-up: 03/14
[2021-03-10 13:08] VITALS: BP 136/55
--- NOTE | 2021-03-10 13:45 | NUR ---
0930- TO CT ROOM FOR THORACENTESIS- IV IN LEFT FOREARM INFILTRATED. MYSELF AND MIHAI ATTEMPTED SEVERAL TIMES TO RESTART IV AND WERE UNSUCCESSFUL. TAKEN BACK TO PTS ROOM AND REPORT TO NURSE.
--- NOTE | 2021-03-10 18:31 | NUR ---
PATIENT MIDLINE NOT SUCESSFUL, CENTRAL LINE OBTAINED, XRAY PERFORMED, PATIENT IS TO GO NPO AT MIDNIGHT FOR PROCEDURES CASSY, NO FURTHER NEEDS AT THIS TIME, CLIR, BLP
[2021-03-10 20:22] VITALS: BP 118/41
[2021-03-11] VITALS (10 sets, daily range): BP systolic 121–142; BP diastolic 51–65
[2021-03-11 07:28] LABS: BASOPHILS 0.6 % (0-2); EOSINOPHILS 2.2 % (0-7); HEMATOCRIT 37.7 % (42.0-54.0); HEMOGLOBIN 11.9 g/dL (13.5-17.5); MCH 27.5 pg (26.0-34.0); MCHC 31.6 g/dL (31.0-37.0); MEAN PLATELET VOLUME 9.3 fL (7.4-10.4); MONOCYTES 4.2 % (2-11); PLATELET COUNT 231 10x3/uL (130-400); RBC 4.34 10x6/uL (4.20-6.10); RDW 17.8 % (11.5-14.5); WBC 13.8 10x3/uL (4.8-10.8)
[2021-03-11 08:02] LABS: ALBUMIN 1.5 g/dL (3.4-5.0); ANION GAP 7.6 mmol/L (8-16); BILIRUBIN - TOTAL 0.64 mg/dL (0.2-1.3); CARBON DIOXIDE 30.2 mmol/L (21.0-32.0); CREATININE - SERUM 1.2 mg/dL (0.6-1.3); MAGNESIUM - SERUM 1.8 mg/dL (1.8-2.4); POTASSIUM - SERUM 3.8 mmol/L (3.5-5.1); PROTEIN - SERUM 6.1 g/dL (6.4-8.2)
--- NOTE | 2021-03-11 08:29 | NUR ---
I AM FOLLOWING UP ON REFERRALS RECEIVED WHILE I WAS IN TRAINING. MR DE LA VEGA IS CURRENTLY NPO WITH A THORACENTESIS PENDING. HE LOOKS LIKE A GOOD CANDIDATE IF HE WANTS TO COME TO INPATIENT REHAB. ONCE HIS IS CLINICALLY STABLE, WE WOULD LIKE TO SUBMIT HIM FOR AUTH. HIS INSURANCE IS ONE THAT WILL GIVE SAME DAY AUTH WHEN REQUESTED. WE WILL CONTINUE TO FOLLOW. THANK YOU FOR THE REFERRAL. MIRIAN BELLAMY RN CLINICAL LIAISON, INPATIENT REHAB.
--- NOTE | 2021-03-11 09:00 | NUR ---
PT LEFT UNIT FOR PROCEDURE ACCOMPANIED BY HOSPITAL STAFF
--- NOTE | 2021-03-11 10:00 | NUR ---
PT RETURNED TO UNIT ACCOMPANIED BY HOSPITAL STAFF. VS WNL. 02 VIA NC AT [address] FRICTION RUB NOTED TO RIGHT SIDE IN ALL LOBES. TOM KIRKLAND, NOTIFIED. CLIR. BED IN LOWEST POSITION. SIDE RAILS X2. INSTRUCTED TO REMAIN IN BED UNTIL 1145
[2021-03-11 14:17] LABS: MACROPHAGES BF 13 %; MESOTHELIALS BF 5 %; NEUT - BF 19 %
--- NOTE | 2021-03-11 14:45 | NUR ---
OT NOTE: PT HAD PROCEDURE TODAY.
--- NOTE | 2021-03-11 19:45 | NUR ---
RECEIVED BEDSIDE REPORT. PT LAYING IN BED A&O X4. CVL TO LEFT JUG, PATENT AND S/L. O2 SAT 94% ON 2L VIA NC, LUNGS SOUNDS DIMINISHED. TELEMETRY IN PLACE, 58 SB. PT ABLE TO AMBULATE WITH ASSIST. EDUCATED PT ON CL AND NEEDS, VERBALIZED UNDERSTANDING. BED LOW, ALARM ON, CL IN REACH.
--- NOTE | 2021-03-11 23:15 | NUR ---
CVL DRSG HANGING OFF PT LEFT IJ, PT C/O PAIN IN NECK WHERE CVL IS. CHANGED DRSG TO CVL, USED STERILE TECHNIQUE, SHAVED AROUND AREA SO THAT DRSG WOULD ADHERE TO SKIN, PT TOLERATED WELL. BED LOW, CL IN REACH.
[2021-03-12 05:41] LABS: BASOPHILS 0.4 % (0-2); EOSINOPHILS 2.9 % (0-7); HEMATOCRIT 35.6 % (42.0-54.0); HEMOGLOBIN 11.6 g/dL (13.5-17.5); LYMPHOCYTES 7.3 % (15-50); MCH 28.1 pg (26.0-34.0); MCHC 32.7 g/dL (31.0-37.0); MCV 85.9 fL (80.0-100.0); MEAN PLATELET VOLUME 8.7 fL (7.4-10.4); MONOCYTES 4.4 % (2-11); RBC 4.14 10x6/uL (4.20-6.10); RDW 17.7 % (11.5-14.5)
[2021-03-12 05:43] LABS: PLATELET COUNT 181 10x3/uL (130-400); WBC 10.3 10x3/uL (4.8-10.8)
[2021-03-12 05:52] LABS: ALBUMIN 1.4 g/dL (3.4-5.0); ANION GAP 7.4 mmol/L (8-16); BILIRUBIN - TOTAL 0.54 mg/dL (0.2-1.3); CALCIUM 7.5 mg/dL (8.5-10.1); CARBON DIOXIDE 29.9 mmol/L (21.0-32.0); CREATININE - SERUM 1.2 mg/dL (0.6-1.3); MAGNESIUM - SERUM 1.6 mg/dL (1.8-2.4); POTASSIUM - SERUM 3.3 mmol/L (3.5-5.1); PROTEIN - SERUM 5.7 g/dL (6.4-8.2)
[2021-03-12 06:05] VITALS: BP 130/54
[2021-03-12 08:00] VITALS: BP 130/62
--- NOTE | 2021-03-12 09:26 | NUR ---
AM MEDS GIVEN AT THIS TIME. HELD CARDIZEM AND AMIODORONE DUE TO LOW HR. PT A/O X4, RESP EVEN AND NONLABORED ON 2L NC. LT JUGULAR CVL SL WITH DRESSING CDI, SWAB CAPS IN PLACE. SB -59 ON TELE. PT DENIES ANY NEEDS AT THIS TIEM. CALL LIGHT IN REACH, SPOUSE AT BEDSIDE. WILL CONTINUE PLAN OF CARE.
[2021-03-12 12:00] VITALS: BP 146/67
[2021-03-12 16:00] VITALS: BP 137/61
--- NOTE | 2021-03-12 16:12 | NUR ---
BLOOD SUGAR OF 115, NO COVERAGE NEEDED PER S/S. IVPB ANTIBIOTIC DONE INFUSING SL LT JUGULAR CVL. PT DENIES ANY NEEDS AT THIS TIME. CALL LIGHT IN REACH, SPOUSE AT BEDSIDE.
[2021-03-12 17:08] LABS: ACID FAST SMEAR Negative (()); AFB SPECIMEN PROCESSING Not Indicated (())
--- NOTE | 2021-03-12 19:54 | NUR ---
RECEIVED REPORT, WILL ASSUME CARE OF PT, VISITING WITH FAMILY, DENIES ANY NEEDS AT THIS TIME, BED IS LOW, SRX2, CALL LIGHT IN REACH, WILL CONTINUE PLAN OF CARE
[2021-03-12 20:41] VITALS: BP 137/57
[2021-03-13 01:57] VITALS: BP 137/53
[2021-03-13 06:10] VITALS: BP 137/62
--- NOTE | 2021-03-13 07:00 | NUR ---
RECEIVED REPORT. ASSUMED CARE OF PATIENT. PATIENT RESTING ON RIGHT LATERAL SIDE, EASILY AROUSED. AT BEDSIDE. CALL LIGHT WITHIN REACH. BEDSIDE SHIFT REPORT COMPLETE, WHITE BOARD UPDATED. NO DISTRESS. PATIENT REPORTS HE IS COMFORTABLE THE WAY PREVIOUS SHIFTS HAVE HIS LEFT IJ SECURED.
[2021-03-13 07:45] VITALS: BP 118/48
[2021-03-13 09:12] LABS: EOSINOPHILS 1.7 % (0-7); HEMATOCRIT 39.9 % (42.0-54.0); HEMOGLOBIN 12.7 g/dL (13.5-17.5); LYMPHOCYTES 8.3 % (15-50); MCH 27.6 pg (26.0-34.0); MCHC 31.9 g/dL (31.0-37.0); MCV 86.5 fL (80.0-100.0); MEAN PLATELET VOLUME 9.5 fL (7.4-10.4); MONOCYTES 3.5 % (2-11); NEUTROPHILS 85.5 % (40-80); PLATELET COUNT 229 10x3/uL (130-400); RBC 4.61 10x6/uL (4.20-6.10); RDW 17.6 % (11.5-14.5); WBC 14.4 10x3/uL (4.8-10.8)
[2021-03-13 09:27] LABS: ALBUMIN 1.6 g/dL (3.4-5.0); ANION GAP 9.7 mmol/L (8-16); BILIRUBIN - TOTAL 0.68 mg/dL (0.2-1.3); CALCIUM 8.1 mg/dL (8.5-10.1); CREATININE - SERUM 1.4 mg/dL (0.6-1.3); POTASSIUM - SERUM 3.7 mmol/L (3.5-5.1); PROTEIN - SERUM 6.5 g/dL (6.4-8.2)
[2021-03-13 11:23] VITALS: BP 138/65
--- NOTE | 2021-03-13 11:42 | NUR ---
FSBS 85. NO INSULIN PER SLIDING SCALE.
[2021-03-13 15:11] VITALS: BP 119/48
--- NOTE | 2021-03-13 16:52 | NUR ---
FSBS 89. NO INSULIN PER SLIDING SCALE.
--- NOTE | 2021-03-13 19:22 | NUR ---
REPORT RECEIVED. PATIENT IS AAOX4, LYING IN BED ON RT SIDE. NO S/S OF DISTRESS OBSERVED, RR EVEN AND UNLABORED ON 2L VIA NC. LT IJ CVL, SL. AT BEDSIDE. PATIENT DENIES NEEDS AT THIS TIME. CL IN REACH, BED LOCKED AND LOWERED. WILL CPOC.
[2021-03-13 20:00] VITALS: BP 130/61
[2021-03-14] VITALS: BP 138/69
[2021-03-14 04:00] VITALS: BP 139/75
[2021-03-14 06:51] LABS: ALBUMIN 1.3 g/dL (3.4-5.0); ANION GAP 7.6 mmol/L (8-16); BILIRUBIN - TOTAL 0.77 mg/dL (0.2-1.3); CALCIUM 7.6 mg/dL (8.5-10.1); CREATININE - SERUM 1.1 mg/dL (0.6-1.3); MAGNESIUM - SERUM 1.7 mg/dL (1.8-2.4); POTASSIUM - SERUM 3.6 mmol/L (3.5-5.1); PROTEIN - SERUM 5.4 g/dL (6.4-8.2)
--- NOTE | 2021-03-14 07:00 | NUR ---
RECEIVED REPORT. ASSUMED CARE OF PATIENT. PATIENT RESTING PEACEFULLY ON RIGHT LATERAL SIDE WITH EYES CLOSED. RESP EVEN AND UNLABORED. CALL LIGHT WITHIN REACH. PATIENT AT BEDSIDE. WHITE BOARD UPDATED, BEDSIDE SHIFT REPORT COMPLETE. NO DISTRESS.
[2021-03-14 07:44] VITALS: BP 136/58
[2021-03-14 10:53] VITALS: BP 128/61
--- NOTE | 2021-03-14 11:33 | NUR ---
FSBS 88. NO INSULIN PER SLIDING SCALE.
[2021-03-14 12:09] LABS: FUNGUS STAIN Final report (())
--- NOTE | 2021-03-14 13:04 | NUR ---
Nutrition Reassessment/Follow-up: Pt reports eating ~50% of breakfast this AM. Has been eating 2 Magic Cups/day and drinking <=1 Ensure/day. C/o mild nausea without vomiting. Loose stools. S/p thoracentesis on 03/11 (-2L). Diet: Regular, Mech Soft, Ensure TID, Magic Cup BID No new wt; last wt: 129# (03/08) Labs noted: Glu 67, Ca 7.6, Mg 1.7, Alb 1.3, elev LFTs Meds noted: Pepcid, Imodium, vit D, Lasix Nutrition Intervention/Recommendations: -Nutrition needs, Dx & goals unchanged since initial assessment. -Encourage PO intake and honor food preferences within diet restrictions. -Continue nutrition supplements as tolerated. -Need new wt. -RD will follow up within 3 days.
[2021-03-14 15:28] VITALS: BP 123/52
--- NOTE | 2021-03-14 17:11 | NUR ---
FSBS 103. NO INSULIN PER SLIDING SCALE.
--- NOTE | 2021-03-14 18:17 | NUR ---
OT NOTE: PT COMPLETED SUPINE TO SIT WITH MIN A. PT COMPLETED EOB SITTING WITH CGA. PT COMPLETED SIT TO STAND WITH MOD-MAX A. PT REQUIRED MIN A FOR POSITIONING IN BED. PT STATED HE IS TIRED. 1-125 ADRIANA SEO COTA
[2021-03-14 20:00] VITALS: BP 128/59
--- NOTE | 2021-03-14 20:00 | NUR ---
REPORT RECEIVED. PT A&O, UP IN BED WITH AT BEDSIDE. NO S/S OF DISTRESS OBSERVED. RR EVEN & UNLABORED ON RA. DENIES ANY BOUTS OF DIARRHEA SINCE IMMODIUM GIVEN ON DAY SHIFT. HX OF LLLOBECTOMY. DIMINISHED LUNG SOUNDS BILATERALLY. SR 61 ON TELE. IV TO L IJ PATENT, SL, SWAB CAPS IN USE. BED LOCKED AND LOWERED, CL IN REACH. WILL CONT POC.
[2021-03-15] VITALS: BP 143/66
[2021-03-15 04:00] VITALS: BP 146/65
[2021-03-15 07:30] LABS: ALBUMIN 1.3 g/dL (3.4-5.0); ANION GAP 12.7 mmol/L (8-16); BILIRUBIN - TOTAL 0.86 mg/dL (0.2-1.3); CALCIUM 7.5 mg/dL (8.5-10.1); CARBON DIOXIDE 26.9 mmol/L (21.0-32.0); CREATININE - SERUM 1.2 mg/dL (0.6-1.3); MAGNESIUM - SERUM 1.7 mg/dL (1.8-2.4); POTASSIUM - SERUM 3.6 mmol/L (3.5-5.1); PROTEIN - SERUM 5.4 g/dL (6.4-8.2)
[2021-03-15 08:00] VITALS: BP 139/61
[2021-03-15 09:31] LABS: EOSINOPHILS 2.4 % (0-7); HEMATOCRIT 36.7 % (42.0-54.0); HEMOGLOBIN 11.8 g/dL (13.5-17.5); LYMPHOCYTES 6.5 % (15-50); MCH 27.7 pg (26.0-34.0); MCHC 32.1 g/dL (31.0-37.0); MCV 86.3 fL (80.0-100.0); MEAN PLATELET VOLUME 9.3 fL (7.4-10.4); MONOCYTES 3.5 % (2-11); NEUTROPHILS 86.6 % (40-80); PLATELET COUNT 186 10x3/uL (130-400); RBC 4.25 10x6/uL (4.20-6.10); RDW 17.6 % (11.5-14.5); WBC 12.5 10x3/uL (4.8-10.8)
--- NOTE | 2021-03-15 10:48 | NUR ---
ANOTHER REHAB PRESCREEN RECEIVED. PATIENT HAS REFUSED TO COME TO INPATIENT REHAB UNLESS HIS CAN STAY WITH HIM 24/ AND ASSIST HIM WITH HIS ADL'S. I EXPLAINED TO HIM AND HIS THAT THE POINT OF COMING TO REHAB IS TO LEARN HOW TO CARE FOR YOURSELF AND WE DO NOT LET FAMLIES COME AND DO THAT FOR THEM. HE TOLD ME IF HIS WAS NOT PERMITED TO BE BY HIS SIDE 24 HE WOULD NOT COME TO OUR UNIT. THEREFORE WE HAD TO DECLINED THE PATIENT. THANK YOU FOR THE SECOND REFERRAL. MIRIAN BELLAMY RN CLINICAL LIAISON, INPATIENT REHAB.
[2021-03-15 12:00] VITALS: BP 146/66
--- NOTE | 2021-03-15 12:59 | NUR ---
OT NOTE: PT AND REQUESTING A TALLER AND MORE SAFE BS COMMODE TO GO OVER THE TOILET SO PT CAN BE MORE INDEP WITH TRANSFERS.. CURRENT BS COMMODE WHICH IS PLACED OVER TOILET DOES NOT HAVE RUBBER CAPS AT BOTTOM AND SLIDES FORWARD WHEN PRESSURE IS PLACED TO STAND UP FROM COMMODE. ANOTHER BS COMMODE WAS LOCATED AND HEIGHT WAS ADJUSTED FOR PT.. PT CONT TO REQUIRE ASSIST BUT MUCH MORE SAFE WITH THIS ONE. PT ABLE TO PERFORM TOILETING AND CLOTHING MGMT WITH CGA FOR BALANCE. ABLE TO AMB IN ROOM BY HOLDING ON TO DOOR FACINGS, BED, TABLE, ETC.. ABLE TO AMB IN HALLWAY WITH WALKER WITH CGA/MIN ASSIST.. PT REMAINS VERY WEAK AND DECONDITIONED. REQUIRES MIN ASSIST WITH BASIC ADLS. RECOMMEND IP REHAB TO ALLOW PT TO IMPROVE WTIH STRENGTH AND ENDURANCE, IN ORDER TO RETURN HOME WITH . EDUAR TILLMAN, OTR/L [id number]
[2021-03-15 15:58] VITALS: BP 120/60
--- NOTE | 2021-03-15 18:20 | MORECARE ---
CASE MANAGEMENT DISCHARGE SUMMARY PATIENT: KORIN DE LA VEGA UNIT: [id number] ADM DATE: 03/07/21 AGE: 65 : 53 SEX: M ROOM/BED: D.2108 AUTHOR: GI,DOC PHYSICIAN: REFERRING PHYSICIAN: TEE NGUYỄN DO DATE OF SERVICE: 03/15/21 Case Management Discharge Planning Summary DCP REVIEW SUMMARY ANTICIPATED D/C DATE: EXPECTED LOS : CASE STATUS: DCP Initiated INITIAL REVIEW: 03/07/2021 INITIAL REVIEWER: Clarisa Robledo FINAL DISCHARGE DISPOSITION: : FINAL REVIEWER: FINAL REVIEW DATE: DCP Focus Questions & Answers QUESTION: ANSWER : PATIENT: KORIN DE LA VEGA ENCOUNTER: [id number] MEDICAL RECORD#: [id number] ADMISSION DATE: 03/07/2021 DISCHARGE DATE: ATTENDING MD: TEE MAST : AGE: 65 MARITAL STATUS: S DC PLAN ID: [id number] FACILITY: [facility] PRINTED ON: 03/15/21 18:20 CT All edits/amendments must be made on the electronic document DICTATION DATE: 03/15/211819 CYBER THREAT ANALYST: YASIR 03/15/211819 RPT#: [id number] DC DATE: STATUS: ADM IN [facility] [address] [place] [address] END OF REPORT
[2021-03-15 20:00] VITALS: BP 130/55
--- NOTE | 2021-03-15 23:44 | NUR ---
REPORT RECEIVED. PT A&O. UP IN BED WITH AT BEDSIDE. NO S/S OF DISTRESS OBSERVED. RR EVEN & UNLABORED ON RA. L IJ IV SL. SB 55 ON TELE. BED LOCKED AND LOWERED, CL IN REACH. WILL CONT POC.
[2021-03-16] VITALS: BP 110/55
[2021-03-16 04:00] VITALS: BP 124/62
[2021-03-16 06:18] LABS: ALBUMIN 1.4 g/dL (3.4-5.0); ANION GAP 10.9 mmol/L (8-16); BILIRUBIN - TOTAL 1.22 mg/dL (0.2-1.3); CALCIUM 8.1 mg/dL (8.5-10.1); CARBON DIOXIDE 29.5 mmol/L (21.0-32.0); CREATININE - SERUM 1.3 mg/dL (0.6-1.3); MAGNESIUM - SERUM 1.7 mg/dL (1.8-2.4); POTASSIUM - SERUM 3.4 mmol/L (3.5-5.1); PROTEIN - SERUM 6.4 g/dL (6.4-8.2)
--- NOTE | 2021-03-16 06:50 | NUR ---
PT LYING IN BED WITH HOB ELEVATED 30 DEGREES. RESP EVEN AND UNLABORED. AAO X4. DENIES NEEDS AT THIS TIME. CLIR. BED IN LOWEST POSITION. SIDE RAILS X2
[2021-03-16 07:44] VITALS: BP 118/55
[2021-03-16 11:10] VITALS: BP 103/50
[2021-03-16] MEDS ORDERED: OMNICEF300 MG PO (13:43)
[2021-03-16] MEDS ORDERED: Benadryl INJ IV (13:43)
[2021-03-16] MEDS ORDERED: IPRAT-ALBUT 0.5-3 ML UPD (13:44)
[2021-03-16] MEDS ORDERED: CARDIZEM SR60 MG PO (13:44)
[2021-03-16] MEDS ORDERED: AMIODARONE HCL200 MG PO (13:45)
[2021-03-16] MEDS ORDERED: FLORAJEN DIGES1 EACH PO (13:45)
[2021-03-16] MEDS ORDERED: LASIX INJ40 MG/4 ML IV (13:45)
[2021-03-16] MEDS ORDERED: LOPERAMIDE HCL2 MG PO (13:45)
[2021-03-16] MEDS ORDERED: MYLANTA / MAALO30 ML PO (13:45)
[2021-03-16] MEDS ORDERED: ACETAMINOPHEN325 MG PO (13:45)
[2021-03-16] MEDS ORDERED: PEPCID PO (13:45)
[2021-03-16] MEDS ORDERED: ZOFRAN4 MG PO (13:46)
--- NOTE | 2021-03-16 20:00 | NUR ---
REPORT RECEIVED. PT A&O, UP IN BED WITH AT BEDIDE. NO S/S OF DISTRESS OBSERVED. RR EVEN & UNLABORED ON RA. EMS ARRIVED TO TRANSPORT PT TO [facility]. JOSE MARSH RN REMOVED L IJ IV ACCESS. TELEMETRY REMOVED. REPORT GIVEN TO WASTE MINIMIZATION TECHNICIAN BY THIS NURSE. D/C PACKET GIVEN TO WASTE MINIMIZATION TECHNICIAN.
--- NOTE | 2021-03-17 07:56 | MORECARE ---
CASE MANAGEMENT DISCHARGE SUMMARY PATIENT: KORIN DE LA VEGA UNIT: [id number] ADM DATE: 03/07/21 AGE: 65 : 53 SEX: M ROOM/BED: D.2108 AUTHOR: GIDOC PHYSICIAN: REFERRING PHYSICIAN: TEE NGUYỄN DO DATE OF SERVICE: 03/17/21 Case Management Discharge Planning Summary DCP REVIEW SUMMARY ANTICIPATED D/C DATE: EXPECTED LOS : CASE STATUS: DCP Initiated INITIAL REVIEW: 03/07/2021 INITIAL REVIEWER: Clarisa Robledo FINAL DISCHARGE DISPOSITION: : FINAL REVIEWER: FINAL REVIEW DATE: DCP Focus Questions & Answers QUESTION: ANSWER : PATIENT: KORIN DE LA VEGA ENCOUNTER: [id number] MEDICAL RECORD#: [id number] ADMISSION DATE: 03/07/2021 DISCHARGE DATE: 03/16/2021 ATTENDING MD: TEE MAST : AGE: 65 MARITAL STATUS: S DC PLAN ID: [id number] FACILITY: [facility] PRINTED ON: 03/17/21 7:56 CT All edits/amendments must be made on the electronic document DICTATION DATE: 03/17/21755 MANAGER OF TRAINING AND DEVELOPMENT: DM 03/17/21 0756 RPT#: [id number] DC DATE:03/16/21 STATUS: DIS IN [facility] [address] [place] [address] END OF REPORT
--- NOTE | 2021-03-18 15:24 | MORECARE ---
CASE MANAGEMENT DISCHARGE SUMMARY PATIENT: KORIN DE LA VEGA UNIT: [id number] ADM DATE: 03/07/21 AGE: 65 : 53 SEX: M ROOM/BED: D.2108 AUTHOR: GI,DOC PHYSICIAN: REFERRING PHYSICIAN: TEE NGUYỄN DO DATE OF SERVICE: 03/18/21 Case Management Discharge Planning Summary DCP REVIEW SUMMARY ANTICIPATED D/C DATE: EXPECTED LOS : CASE STATUS: DCP Initiated INITIAL REVIEW: 03/07/2021 INITIAL REVIEWER: Clarisa Robledo FINAL DISCHARGE DISPOSITION: : FINAL REVIEWER: FINAL REVIEW DATE: DCP Focus Questions & Answers QUESTION: ANSWER : PATIENT: KORIN DE LA VEGA ENCOUNTER: [id number] MEDICAL RECORD#: [id number] ADMISSION DATE: 03/07/2021 DISCHARGE DATE: 03/16/2021 ATTENDING MD: TEE MAST : AGE: 65 MARITAL STATUS: S DC PLAN ID: [id number] FACILITY: [facility] PRINTED ON: 03/18/21 15:24 CT All edits/amendments must be made on the electronic document DICTATION DATE: 03/18/21 152 CAMPUS DEAN: DM 03/18/21 1524 RPT#: [id number] DC DATE:03/16/21 STATUS: DIS IN [facility] [address] [place] [address] END OF REPORT
== END 2021-03-16 20:25 | DRG 193 ==
LOC: D.ER 10:41 → D.MS 14:56 → D.M2 14:56
PROVIDERS: Emergency Medicine; General Practice; Internal Medicine Medical Oncology; Internal Medicine Pulmonary Disease; Radiology Vascular & Interventional Radiology; ADMIT Family Medicine; ATTEND Family Medicine
PROC: 05HN33Z Insertion of Infusion Device into Left Internal Jugular Vein, Percutaneous Approach (ICD-10-PCS; 2021-03-10)
PROC: 0W993ZZ Drainage of Right Pleural Cavity, Percutaneous Approach (ICD-10-PCS; principal; 2021-03-11 09:00)
DX: J18.9 Pneumonia, unspecified organism (principal); I50.33 Acute on chronic diastolic (congestive) heart failure; E43 Unspecified severe protein-calorie malnutrition; I42.9 Cardiomyopathy, unspecified; Z68.1 Body mass index [BMI] 19.9 or less, adult; I48.91 Unspecified atrial fibrillation; K21.9 Gastro-esophageal reflux disease without esophagitis; I11.0 Hypertensive heart disease with heart failure; J43.9 Emphysema, unspecified; Z87.891 Personal history of nicotine dependence; Z85.118 Personal history of other malignant neoplasm of bronchus and lung; R74.01 Elevation of levels of liver transaminase levels; R53.81 Other malaise